=== PATIENT | female | born 1935 | race Caucasian/White ===

== ENCOUNTER → 2016-09-25 | Outpatient (CLI) | payer BC ==
[~2016-09-25] MED LIST: ASPI81TA28 PO; ATOR10TA82 PO; BNC/40 PO; C-PAP; GLIM4TAB2 PO; HYDR12.55 PO; LVNIS30 SQ; MAGN500T4 PO; METO50TA7 PO; MULT-506 PO; OXYC-57 PO; POTA20TA16 PO; SITA100T3 PO
[2016-09-25 12:36] LABS: HEMATOCRIT 45.8 % (37-47); MEAN CELL VOLUME 95.4 fL (80-100); MEAN CORPUSCULAR HEMOGLOBIN 32.7 pg (25-34); MEAN CORPUSCULAR HGB CONC 34.3 g/dl (32-36); MEAN PLATELET VOLUME 11.1 fL (7.4-10.4); PLATELET COUNT 159 K/uL (130-400); WHITE BLOOD COUNT 8.92 K/uL (4.8-10.8)
[2016-09-25 13:06] LABS: ESTIMATED AVERAGE GLUCOSE 154 mg/dl; HA1C FLAG Normal (Normal)
[2016-09-25 13:11] LABS: RATIO 4.8 mcg/mg (0-30.0)
[2016-09-25 13:30] LABS: ALT/SGPT 14 U/L (12-78); BLOOD UREA NITROGEN 13 mg/dl (7-18); BUN/CREATININE RATIO 15.1 (10-20); CARBON DIOXIDE 32 mmol/L (21-32); CHLORIDE 103 mmol/L (98-107); CHOLESTEROL 153 mg/dl (0-200); CREATININE 0.83 mg/dl (0.60-1.20); GLUCOSE 182 mg/dl (70-99); POTASSIUM 4.1 mmol/L (3.5-5.1); SODIUM 142 mmol/L (136-145)
[2016-09-25 13:41] LABS: ALB/GLOB RATIO 0.8 (0.9-2); ALKALINE PHOSPHATASE 62 U/L (45-117); AST/SGOT 14 U/L (15-37); CHOLESTEROL/HDL RATIO 2.9; HDL CHOLESTEROL 52 mg/dl; LDL CHOLESTEROL CALCULATED 76 mg/dl; TRIGLYCERIDES 127 mg/dl (0-150); VERY LOW DENSITY LIPOPROT CALC 25 mg/dl
[2016-09-25 13:52] LABS: CALCIUM 9.3 mg/dl (8.5-10.1)
== END | disposition home or self-care (01) ==
LOC: C.LABBFT 08:33
PROVIDERS: ATTEND Internal Medicine
DX: E11.9 Type 2 diabetes mellitus without complications (principal)

== ENCOUNTER → 2016-12-25 | Outpatient (CLI) | payer BC ==
[~2016-12-25] MED LIST changes: -ATOR10TA82 PO; +ATOR10TA88 PO
--- NOTE | 2016-12-25 15:37 | MAMMOGRAPHY REPORT ---
BILATERAL DIGITAL SCREENING MAMMOGRAM WITH CAD: 12/25/2016 CLINICAL HISTORY: Routine screening. Patient has no complaints. TECHNIQUE: Current study was also evaluated with a Computer Aided Detection (CAD) system. Bilateral CC and MLO views were obtained. COMPARISON: Comparison is made to exams dated: 12/22/2015 mammogram, 12/20/2014 mammogram, 08/10/2013 marlon mogram, 08/06/2012 mammogram, 07/29/2011 mammogram, and 07/26/2010 mammogram - [facility]. BREAST COMPOSITION: There are scattered areas of fibroglandular density in both breasts. FINDINGS: No suspicious masses, calcifications, or areas of architectural distortion are noted in ei ther breast. There has been no significant interval change compared to prior exams. Small bilateral benign-appearing masses and bilateral benign-appearing calcifications are not significantly changed. IMPRESSION: ACR BI-RADS CATEGORY 2: BENIGN There is no mammographic evidence of malignancy. A 1 year screening mammogram is recommended. The pa tient will receive written notification of the results. Approximately 10% of breast cancers are not detected with mammography. A negative mammographic report should not delay biopsy if a clinically suggestive mass is present. Aline Aranda M.D. /:12/25/2016 10:31:32 Rehabilitation Worker: Leanne JADE(Alex)(Pura), [facility] letter sent: Normal 1/2 BI-RADS Code: ACR BI-RADS Category 2: Benign
== END | disposition home or self-care (01) ==
LOC: C.MAMM 09:33
PROVIDERS: ATTEND Internal Medicine
DX: Z12.31 Encounter for screening mammogram for malignant neoplasm of breast (principal)

== ENCOUNTER 2021-12-24 10:28 | Inpatient (IN) ==
[2021-12-24] MEDS ORDERED: ALBUT/IPRATROP 3MG/0.5MG NEB 3 ML VIAL NEB STA ×2 (10:57→13:03)
[2021-12-24 11:25] LABS: Base Excess VBG 3.4 mEq/L; HCO3 VBG 30 mmol/L; Oxygen Saturation VBG 86.5 %; PCO2 VBG 50 mmHg (38-50); PO2 VBG 53 mmHg; pH VBG 7.38 (7.36-7.41)
--- NOTE | 2021-12-24 11:30 | XRay Report ---
XR chest 1V portable HISTORY: Shortness of breath. Productive cough. Atypical Chest Pain COMPARISON: Chest 08/2621. FINDINGS: No pneumothorax. Possible trace right pleural effusion. The cardiac silhouette remains enla rged. There is mild central pulmonary vascular congestion without overt edema. Hazy right base airspa ce opacity is new from the prior study. IMPRESSION: 1. Cardiomegaly with mild pulmonary vascular congestion. 2. Hazy right basilar airspace opacity which is new from the prior study and may represent a pneumoni a. This could be due to aspiration. ACT 112: Negative or not required by law. Electronically signed by: Bon Addison M.D. 12/24/2021 11:29 AM
[2021-12-24 11:50] LABS: Basophils # (auto) 0.07 K/uL (0-0.2); Eosinophils # (auto) 0.19 K/uL (0-0.50); Eosinophils % (auto) 2.8 %; Hematocrit (blood only) 47.3 % (34.1-44.9); Hemoglobin 16.1 g/dl (12.0-16.0); Immature Granulocytes # (auto) 0.05 K/uL (0.00-0.02); Immature Granulocytes % (auto) 0.7 %; Lymphocytes # (auto) 1.25 K/uL (1.2-3.4); Lymphocytes % (auto) 18.3 %; Mean Platelet Volume 10.8 fL (9.4-12.3); Monocytes # (auto) 0.57 K/uL (0.24-0.82); Monocytes % (auto) 8.3 %; Neutrophils # (auto) 4.71 K/uL (1.4-6.5); Neutrophils % (auto) 68.9 %; Nucleated RBC # (auto) 0.02 K/uL (0-0); Nucleated RBC % (auto) 0.3 %; Platelet Count 112 K/uL (130-400); Platelet Estimate Decreased (Normal); RDW Coefficient of Variation 13.1 % (11.5-14.5); RDW Standard Deviation 45.5 fL (36.4-46.3); Red Blood Count 5.03 M/uL (3.93-5.22); White Blood Count 6.84 K/ul (4.8-10.8)
[2021-12-24 12:16] LABS: Anion Gap 7 (3-11); BUN Creatinine Ratio 19.7 (10-20); Blood Urea Nitrogen 14 mg/dl (6-23); Calcium 8.8 mg/dl (8.5-10.1); Carbon Dioxide 27 mmol/L (21-32); Chloride 103 mmol/L (98-107); Creatinine Clr Calc Pharmacy 56.6 ml/min; Est GFR (African American) 89.4 ml/min; Est GFR (Non-African American) 77.1 ml/min; Glucose 297 mg/dl (70-99(Fasting)); Lipase 37 U/L (11-82); Sodium 137 mmol/L (136-145); Troponin I High Sensitivity 8.8 pg/ml (0-14)
--- NOTE | 2021-12-24 12:20 | CT Scan Report ---
CT head/brain wo con CLINICAL HISTORY: ams Technique: Contiguous axial CT images of the head were acquired from the base of the skull to the reva lloyd without intravenous contrast administration. Images were viewed in brain, [facility] Automated dose lowering techniques and/or adjustment according to patient size were utilized for this exam. Comparison: Comparison is made to CT head 12/05/2013 Findings: Exam is limited by patient motion. The ventricles, basal cisterns, and cerebral sulci are normal. The re is no acute intracranial hemorrhage or evidence of acute territorial infarction. Neither mass effe ct, shift of the midline structures, nor abnormal extra-axial fluid collections are shown. Imaged portions of the paranasal sinuses and mastoid air cells are clear. The orbits appear normal. Incidental note is made of a 26 mm sclerotic lesion in the right frontal calvarium which appears enl arged from prior exam. Impression: 1. No acute intracranial hemorrhage, no evidence of acute territorial infarction or other acute intr acranial disease process. 2. Interval enlargement of a sclerotic lesion in the left frontal calvarium. This may represent enla rging bone island, however correlation for osteoblastic disease is recommended. ACT 112: Positive. There are findings on this exam that require communication between the performing entity and the patient following Patient Test Result Information Act ([place] Act 112) guidelines. Electronically signed by: Genaro Hinson M.D. 12/24/2021 12:19 PM
[2021-12-24 12:40] LABS: Influenza A virus by PCR Negative (Neg); Influenza B virus by PCR Negative (Neg); RSV by PCR Positive (Neg)
[2021-12-24 12:45] LABS: SARS CoV2 RNA(COVID-19) InHosp NEGATIVE (Negative)
[2021-12-24] MEDS ORDERED: FUROSEMIDE 40 MG/4 ML VIAL IV ONE (12:59)
[2021-12-24 13:09] LABS: iSTAT Creatinine 0.6 mg/dl (0.6-1.3); iSTAT Ionized Calcium 1.11 mmol/l (1.12-1.32); iSTAT Potassium 3.4 mmol/L (3.3-5.0)
[2021-12-24 13:22] LABS: INR 1.1 (0.9-1.1); Partial Thromboplastin Ratio 1.1; Partial Thromboplastin Time 30.1 Seconds (21.0-31.0); Prothrombin Time 11.9 Seconds (9.0-12.0)
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
[2021-12-24] MEDS ORDERED: METOPROLOL SUCC 50MG EXT REL TAB PO STA (14:34)
--- NOTE | 2021-12-24 14:38 | Electrocardiogram Report ---
Test Reason : Blood Pressure : / mmHG Vent. Rate : 078 BPM Atrial Rate : 069 BPM P-R Int : 000 ms QRS Dur : 076 ms QT Int : 372 ms P-R-T Axes : 000 091 077 degrees QTc Int : 424 ms Atrial fibrillation Rightward axis Nonspecific ST and T wave abnormality Abnormal ECG When compared with ECG of 02-SEP-2021 17:33, Nonspecific T wave abnormality now evident in Inferior leads QT has shortened Confirmed by Tirso Cantrell ([id number]) on 12/24/2021 2:38:07 PM Referred By: REFERRED SELF Confirmed By:Nehemias Cantrell
[2021-12-24] MEDS ORDERED: GLIMEPIRIDE 2 MG TAB PO STA (14:39)
[2021-12-24] MEDS ORDERED: GLUCAGON FOR INJ 1 MG VIAL SQ PRN (16:12)
[2021-12-24] MEDS ORDERED: ONDANSETRON INJ 2 MG/ML 2 ML VIAL IV PRN (16:12)
[2021-12-24] MEDS ORDERED: DEXTROSE 50% 50 ML SYRINGE IV PRN (16:12)
[2021-12-24] MEDS ORDERED: ACETAMINOPHEN 325 MG TAB PO PRN (16:12)
[2021-12-24] MEDS ORDERED: GLUCOSE 10 TAB/TUBE PO PRN (16:12)
[2021-12-24] MEDS ORDERED: traMADol HCL 50 MG TABLET PO PRN (16:12)
[2021-12-24] MEDS ORDERED: GLUCOSE 40% GEL 15 GM TUBE PO PRN (16:12)
[2021-12-24] MEDS: INSULIN ASPART PER UNIT SC SCH ×2 (16:36→20:35)
[2021-12-24] MEDS: ALBUT/IPRATROP 3MG/0.5MG NEB 3 ML VIAL NEB SCH ×3 (16:37→22:46)
[2021-12-24] MEDS: LOSARTAN POTASSIUM 50 MG TAB PO SCH (17:34)
[2021-12-24] MEDS: APIXABAN 5 MG TABLET PO SCH (20:39)
[2021-12-25] MEDS: ALBUT/IPRATROP 3MG/0.5MG NEB 3 ML VIAL NEB SCH ×6 (02:57→23:06)
[2021-12-25 07:50] LABS: BUN Creatinine Ratio 23.7 (10-20); Calcium 8.8 mg/dl (8.5-10.1); Creatinine Clr Calc Pharmacy 67.4 ml/min; Est GFR (African American) 96.2 ml/min; Potassium 3.6 mmol/L (3.5-5.1)
[2021-12-25] MEDS: predniSONE 20 MG TAB PO SCH (08:15)
[2021-12-25] MEDS: CHOLECALCIFEROL 1,000 UNITS 25 MCG TAB PO SCH (08:15)
[2021-12-25] MEDS: APIXABAN 5 MG TABLET PO SCH ×2 (08:15→21:10)
[2021-12-25] MEDS: ATORVASTATIN 10 MG TAB PO SCH (08:15)
[2021-12-25] MEDS: FUROSEMIDE INJ 20 MG/2 ML VIAL IV SCH (08:16)
[2021-12-25] MEDS: METOPROLOL SUCC 50MG EXT REL TAB PO SCH (08:17)
[2021-12-25] MEDS: GLIMEPIRIDE 2 MG TAB PO SCH ×2 (08:17→21:10)
[2021-12-25] MEDS: LOSARTAN POTASSIUM 50 MG TAB PO SCH (08:18)
[2021-12-25 08:26] LABS: Basophils # (auto) 0.03 K/uL (0-0.2); Basophils % (auto) 0.5 %; Hematocrit (blood only) 45.7 % (34.1-44.9); Hemoglobin 15.2 g/dl (12.0-16.0); Immature Granulocytes # (auto) 0.02 K/uL (0.00-0.02); Immature Granulocytes % (auto) 0.3 %; Lymphocytes # (auto) 1.67 K/uL (1.2-3.4); Lymphocytes % (auto) 25.4 %; Mean Corpuscular Hemoglobin 31.5 pg (25.0-34.0); Mean Corpuscular Hgb Conc 33.3 g/dL (32.0-36.0); Mean Corpuscular Volume 94.8 fL (80.0-100.0); Mean Platelet Volume 10.4 fL (9.4-12.3); Monocytes # (auto) 0.79 K/uL (0.24-0.82); Neutrophils # (auto) 4.06 K/uL (1.4-6.5); Neutrophils % (auto) 61.8 %; Platelet Count 113 K/uL (130-400); Platelet Estimate Decreased (Normal); RDW Coefficient of Variation 13.2 % (11.5-14.5); RDW Standard Deviation 45.7 fL (36.4-46.3); Red Blood Count 4.82 M/uL (3.93-5.22); White Blood Count 6.57 K/ul (4.8-10.8)
[2021-12-25 08:31] LABS: Estimated Average Glucose 128 mg/dl; Hemoglobin A1C 6.1 % (4.5-5.6)
[2021-12-25] MEDS: INSULIN ASPART PER UNIT SC SCH ×4 (08:34→21:04)
--- NOTE | 2021-12-25 18:52 | Hospitalist Progress Note ---
Date of Service December 25, 2021 Assessment & Plan (1) RSV (respiratory syncytial virus pneumonia): Plan: 86 yo female with extensive PMHx who presented to ER with shortness of breath, diarrhea, cough and nausea starting four days ago. Acute hypoxic resp failure sec to Reactive airway disease due to RSV and possible fluid overload -NC oxygen Reactive airway ds -No history of asthma or COPD but usually needs albuterol when she gets sick and significant improvement with nebulizers in the emergency room. -Solu-Medrol 40mg IV x1, then prednisone 40mg PO daily for 3-5 day course likely needed -Duonebs q4hwa + q2h PRN -supplement O2 as needed, ween as able -Recommend outpatient follow up with PCP for PFTs RSV (respiratory syncytial virus pneumonia) -Droplet isolation precautions -Conservative management as above 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 fraction -Suspect minimally contributory towards acute respiratory failure with hypoxia given significant improvement after duonebs suspect her hypoxia mostly related to reactive airway disease as above -still appears to be hypervolemic on CXR and exam -Lasix 40mg IV given in ER, continue 20mg IV daily (usual dose is 20mg PO daily) -Low Na, heart healthy diet Moderate aortic stenosis -Moderate to severe on recent echocardiogram in November. 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 This may represent enlarging bone island, however correlation for osteoblastic disease is recommended. -Consider bone scan as outpatient Persistent atrial fibrillation -Continue Eliquis for anticoagulation -cont. metoprolol 50mg PO daily Type 2 diabetes mellitus -HbA1C 6.4 in July, repeat 6.1 (12/24) -Hold glimepiride and Trulicity once weekly (next dose on Friday) -on SSI Hypertension -Continue losartan, metoprolol and Lasix (dosing as above) Hypercholesteremia -Continue atorvastatin 5mg PO daily SADIQ (obstructive sleep apnea) -CPAP HS DVT ppx: Eliquis FEN/GI: low Na, HH, no need for fluid restriction Code Status: conditional code, DNR only Dispo: PCU/tele (2) Reactive airway disease: (3) 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 fraction: (4) Moderate aortic stenosis: (5) Abnormal head CT: (6) Persistent atrial fibrillation: (7) Type 2 diabetes mellitus: (8) Hypertension: (9) Hypercholesteremia: (10) SADIQ (obstructive sleep apnea): Admission and Anticipated Discharge Date Admission Date: December 24, 2021 Supervising Physician Co-Signing Physician Notes Resident Physician Supervision Note: I independently interviewed and examined the patient and verified the tellez history and physical, reviewed labs and image studies and agree with resident Dr. Ghotra findings and care plan. Subjective Patient seen at bedside this morning. Feeling better than before. Breathing better, still on supplemental oxygen. Denies chest pain, SOB, PENA, N/V. Review of Systems Review of Systems: All systems reviewed & are unremarkable except as noted in HPI & below Physical Exam Physical Exam: Constitutional: in no acute distress, pleasant, intact memory. Vitals as above. NC in place. HEENT: No scleral injection or discharge.Moist mucous membranes. Neck: Supple without lymphadenopathy. Trachea midline. Lungs: Diffuse expiratory wheezes with crackles, no accessory muscle use Cardiac: RRR. No murmurs.1+ pretibial edema bilaterally. Abdomen: +BS. Soft, nontender, and nondistended.No guarding. MSK: No cyanosis or clubbing. Skin: No rashes, warm, dry. Neurologic: Grossly intact cranial nerves Psych: AOx3 Results & Data Results & Data ([facility]) Vital Signs (Past 12 Hours) Vital Signs Temp Pulse Pulse Resp BP Pulse Ox 12/25/21 16:18 36.8 C 93 H 18 128/84 90 12/25/21 15:11 73 18 95 12/25/21 15:00 83 12/25/21 12:01 38 C H 87 18 138/81 92 12/25/21 10:42 92 H 18 94 12/25/21 07:30 36.8 C 102 H 16 122/62 94 12/25/21 07:15 76 20 95 Laboratory Results 12/25/21 12/25/21 12/25/21 Range/Units 16:30 11:15 07:26 WBC (4.8-10.8) K/ul RBC (3.93-5.22) M/uL Hgb (12.0-16.0) g/dl Hct (34.1-44.9) % MCV (80.0-100.0) fL MCH (25.0-34.0) pg MCHC (32.0-36.0) g/dL RDW Std Deviation (36.4-46.3) fL RDW Coeff of Umair (11.5-14.5) % Plt Count (130-400) K/uL MPV (9.4-12.3) fL Immature Gran % (Auto) % Neut % (Auto) % Lymph % (Auto) % [place] % (Auto) % Eos % (Auto) % Baso % (Auto) % Neut # (Auto) (1.4-6.5) K/uL Lymph # (Auto) (1.2-3.4) K/uL [place] # (Auto) (0.24-0.82) K/uL Eos # (Auto) (0-0.50) K/uL Baso # (Auto) (0-0.2) K/uL Immature Gran # (Auto) (0.00-0.02) K/uL Platelet Estimate (Normal) Sodium (136-145) mmol/L Potassium (3.5-5.1) mmol/L Chloride (98-107) mmol/L Carbon Dioxide (21-32) mmol/L Anion Gap (3-11) BUN (6-23) mg/dl Creatinine (0.6-1.2) mg/dl Est Cr Clr Drug Dosing ml/min Est GFR ( Amer) ml/min Est GFR (Non-Af Amer) ml/min BUN/Creatinine Ratio (10-20) Glucose (70-99(Fasting)) mg/dl POC Glucose 190 H 146 H 73 (70-99) mg/dl Estimat Average Glucose mg/dl Hemoglobin A1c (4.5-5.6) % Calcium (8.5-10.1) mg/dl 12/25/21 12/25/21 12/25/21 Range/Units 07:07 07:07 07:07 WBC 6.57 (4.8-10.8) K/ul RBC 4.82 (3.93-5.22) M/uL Hgb 15.2 (12.0-16.0) g/dl Hct 45.7 H (34.1-44.9) % MCV 94.8 (80.0-100.0) fL MCH 31.5 (25.0-34.0) pg MCHC 33.3 (32.0-36.0) g/dL RDW Std Deviation 45.7 (36.4-46.3) fL RDW Coeff of Umair 13.2 (11.5-14.5) % Plt Count 113 L (130-400) K/uL MPV 10.4 (9.4-12.3) fL Immature Gran % (Auto) 0.3 % Neut % (Auto) 61.8 % Lymph % (Auto) 25.4 % [place] % (Auto) 12.0 % Eos % (Auto) 0.0 % Baso % (Auto) 0.5 % Neut # (Auto) 4.06 (1.4-6.5) K/uL Lymph # (Auto) 1.67 (1.2-3.4) K/uL [place] # (Auto) 0.79 (0.24-0.82) K/uL Eos # (Auto) 0.00 (0-0.50) K/uL Baso # (Auto) 0.03 (0-0.2) K/uL Immature Gran # (Auto) 0.02 (0.00-0.02) K/uL Platelet Estimate Decreased L (Normal) Sodium 142 (136-145) mmol/L Potassium 3.6 (3.5-5.1) mmol/L Chloride 104 (98-107) mmol/L Carbon Dioxide 34 H (21-32) mmol/L Anion Gap 4 (3-11) BUN 14 (6-23) mg/dl Creatinine 0.59 L (0.6-1.2) mg/dl Est Cr Clr Drug Dosing 67.4 ml/min Est GFR ( Amer) 96.2 ml/min Est GFR (Non-Af Amer) 83.0 ml/min BUN/Creatinine Ratio 23.7 H (10-20) Glucose 76 (70-99(Fasting)) mg/dl POC Glucose (70-99) mg/dl Estimat Average Glucose 128 mg/dl Hemoglobin A1c 6.1 H (4.5-5.6) % Calcium 8.8 (8.5-10.1) mg/dl 12/24/21 Range/Units 20:02 WBC (4.8-10.8) K/ul RBC (3.93-5.22) M/uL Hgb (12.0-16.0) g/dl Hct (34.1-44.9) % MCV (80.0-100.0) fL MCH (25.0-34.0) pg MCHC (32.0-36.0) g/dL RDW Std Deviation (36.4-46.3) fL RDW Coeff of Umair (11.5-14.5) % Plt Count (130-400) K/uL MPV (9.4-12.3) fL Immature Gran % (Auto) % Neut % (Auto) % Lymph % (Auto) % [place] % (Auto) % Eos % (Auto) % Baso % (Auto) % Neut # (Auto) (1.4-6.5) K/uL Lymph # (Auto) (1.2-3.4) K/uL [place] # (Auto) (0.24-0.82) K/uL Eos # (Auto) (0-0.50) K/uL Baso # (Auto) (0-0.2) K/uL Immature Gran # (Auto) (0.00-0.02) K/uL Platelet Estimate (Normal) Sodium (136-145) mmol/L Potassium (3.5-5.1) mmol/L Chloride (98-107) mmol/L Carbon Dioxide (21-32) mmol/L Anion Gap (3-11) BUN (6-23) mg/dl Creatinine (0.6-1.2) mg/dl Est Cr Clr Drug Dosing ml/min Est GFR ( Amer) ml/min Est GFR (Non-Af Amer) ml/min BUN/Creatinine Ratio (10-20) Glucose (70-99(Fasting)) mg/dl POC Glucose 183 H (70-99) mg/dl Estimat Average Glucose mg/dl Hemoglobin A1c (4.5-5.6) % Calcium (8.5-10.1) mg/dl Resident Activity Tracking Resident Involvement: Resident Care Provided Care Provided: Adult [facility] Medicine
[2021-12-26] MEDS: ALBUT/IPRATROP 3MG/0.5MG NEB 3 ML VIAL NEB SCH ×4 (04:06→15:04)
[2021-12-26 06:59] LABS: Albumin Globulin Ratio 1.2 (0.9-2); Albumin Level 3.4 gm/dl (3.4-5.0); BUN Creatinine Ratio 29.9 (10-20); Bilirubin,Total 0.7 mg/dl (0.2-1.0); Calcium 8.9 mg/dl (8.5-10.1); Creatinine Clr Calc Pharmacy 51.6 ml/min; Est GFR (Non-African American) 69.9 ml/min; Globulin 2.8 gm/dl (2.5-4.0); Potassium 3.8 mmol/L (3.5-5.1); Total Protein 6.2 gm/dl (6.0-8.3)
[2021-12-26] MEDS: CARBOHYDRATES FOR HYPOGLYCEMIA PO PRN ×3 (07:12→07:57)
[2021-12-26 07:25] LABS: Basophils # (auto) 0.03 K/uL (0-0.2); Basophils % (auto) 0.4 %; Eosinophils # (auto) 0.05 K/uL (0-0.50); Eosinophils % (auto) 0.6 %; Hematocrit (blood only) 49.9 % (34.1-44.9); Hemoglobin 16.2 g/dl (12.0-16.0); Immature Granulocytes # (auto) 0.02 K/uL (0.00-0.02); Immature Granulocytes % (auto) 0.2 %; Lymphocytes % (auto) 28.4 %; Mean Corpuscular Hemoglobin 32.1 pg (25.0-34.0); Mean Corpuscular Hgb Conc 32.5 g/dL (32.0-36.0); Mean Platelet Volume 12.4 fL (9.4-12.3); Monocytes % (auto) 9.9 %; Neutrophils # (auto) 4.91 K/uL (1.4-6.5); Neutrophils % (auto) 60.5 %; Platelet Count 123 K/uL (130-400); RDW Coefficient of Variation 13.4 % (11.5-14.5); RDW Standard Deviation 48.4 fL (36.4-46.3); Red Blood Count 5.04 M/uL (3.93-5.22); White Blood Count 8.11 K/ul (4.8-10.8)
[2021-12-26] MEDS ORDERED: GLIMEPIRIDE 2 MG TAB PO SCH (08:00)
[2021-12-26] MEDS: INSULIN ASPART PER UNIT SC SCH ×4 (08:15→20:42)
[2021-12-26] MEDS: APIXABAN 5 MG TABLET PO SCH ×2 (09:16→20:34)
[2021-12-26] MEDS: ATORVASTATIN 10 MG TAB PO SCH (09:16)
[2021-12-26] MEDS: predniSONE 20 MG TAB PO SCH (09:17)
[2021-12-26] MEDS: FUROSEMIDE INJ 20 MG/2 ML VIAL IV SCH (09:17)
[2021-12-26] MEDS: METOPROLOL SUCC 50MG EXT REL TAB PO SCH (09:17)
[2021-12-26] MEDS: LOSARTAN POTASSIUM 50 MG TAB PO SCH (09:17)
[2021-12-26] MEDS: CHOLECALCIFEROL 1,000 UNITS 25 MCG TAB PO SCH (09:17)
[2021-12-26] MEDS ORDERED: SODIUM CHLORIDE 0.65% NA SOLN 45 ML (OCEAN) ONE (15:32)
[2021-12-26] MEDS ORDERED: ALBUT/IPRATROP 3MG/0.5MG NEB 3 ML VIAL NEB PRN (15:37)
--- NOTE | 2021-12-26 20:03 | Hospitalist Progress Note ---
Date of Service December 26, 2021 Assessment & Plan (1) RSV (respiratory syncytial virus pneumonia): Plan: 86 yo female with extensive PMHx who presented to ER with shortness of breath, diarrhea, cough and nausea starting four days ago. Acute hypoxic resp failure sec to Reactive airway disease due to RSV and possible fluid overload -No history of asthma or COPD but usually needs albuterol when she gets sick and significant improvement with nebulizers in the emergency room. -Solu-Medrol 40mg IV x1, then prednisone 40mg PO daily for 3-5 day course likely needed -Duonebs qh4 prn -supplement O2 as needed, ween as able -Recommend outpatient follow up with PCP for PFTs -Droplet isolation precautions 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 fraction -Suspect minimally contributory towards acute respiratory failure with hypoxia given significant improvement after duonebs suspect her hypoxia mostly related to reactive airway disease as above -appears euvolemic on exam -Lasix 40mg IV given in ER, continue 20mg IV daily (usual dose is 20mg PO daily) -Low Na, heart healthy diet Type 2 diabetes mellitus -HbA1C 6.4 in July, repeat 6.1 (12/24) -Hold glimepiride and Trulicity once weekly (next dose on Friday) -on SSI -was given two doses of glimepiride on 12/25 with a asymptomatic hypoglycemic episode the following morning, suspect she has these at home without realizat ion, would consider discontinuation of glimepiride on discharge or at least a decrease in dose if patient agrees; f/u PCP Moderate aortic stenosis -Moderate to severe on recent echocardiogram in November. Followed up with sample prep technician following this but deferring TAVR Abnormal head CT -Interval enlargement of a sclerotic lesion in the left frontal calvarium. This may represent enlarging bone island, however correlation for osteoblastic disease is recommended. -Consider bone scan as outpatient Persistent atrial fibrillation -Continue Eliquis for anticoagulation -cont. metoprolol 50mg PO daily Hypertension -Continue losartan, metoprolol and Lasix (dosing as above) Hypercholesteremia -Continue atorvastatin 5mg PO daily SADIQ (obstructive sleep apnea) -CPAP HS DVT ppx: Eliquis FEN/GI: low Na, HH Code Status: conditional code, DNR only Dispo: PCU/tele (2) Reactive airway disease: (3) 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 fraction: (4) Moderate aortic stenosis: (5) Abnormal head CT: (6) Persistent atrial fibrillation: (7) Type 2 diabetes mellitus: (8) Hypertension: (9) Hypercholesteremia: (10) SADIQ (obstructive sleep apnea): Admission and Anticipated Discharge Date Admission Date: December 24, 2021 Supervising Physician Co-Signing Physician Notes Patient seen and examined with PGY-2 Dr. Ghotra. Agree with history, exam findings, assessment and plan of care as outlined. In brief, Ms Garrett is an 86 year old female with history of reactive airway, HFpEF, aortic stenosis, atrial fibrillation, DM2, HTN, HLD, and SADIQ admitted with wheezing. This morning, feels well despite some nasal congestion. She did have an episodes of hypoglycemia this morning--she was asymptomatic. She has never had symptoms of hypoglycemia at home. Does note that her appetite is less here compared to her baseline. She has tried other glycemic management medications, but glimepiride has been the only thing she tried that she did not react to. her A1C was 6.1% on admission. At home, is on 4mg glimepiride BID. VS and nursing notes reviewed. Well appearing, Heart is irregular. No edema. Wheezing and coarse breath sounds throughout. No crackles. Labs reviewed. 1. Reactive airway. No hx of asthma or COPD, but typically needs beta agonist when she has a respiratory infection. Improved with nebs in the ED. Continue prednisone, duonebs PRN. Currently on 2 L NC--attempted to wean earlier in the day, but desaturated. Will attempt to wean again tomorrow. Needs PFTs as an outpatient. 2. RSV infection. Droplet precautions. Supportive care. 3. HFpEF. Not in exacerbation, currently euvolemic. Continue home Lasix 20mg. 4. Atrial fibrillation. Continue home metoprolol. AC with Eliquis. 5. DM2. Continue home Trulicity (), ssi. Stopped home glimepiride. Discussed with patient possibility of reducing dose or stopping the sulfonylurea in the future to avoid continued hypoglycemia. Can consider a more liberal A1C given her age. 6. HTN. Continue home losartan, metoprolol, Lasix. 7. HLD. Continue atorvastatin 5mg daily. Dispo: pending clinical improvement Subjective Patient seen at bedside this morning. Feeling well, similar to yesterday. Still on supplemental oxygen. Does ambulate in room on O2 without complaint. Denies chest pain, SOB, PENA, N/V. Of note, this morning did have an asymptomatic hypoglycemic reading in the 50s, resolved with OJ and food. Review of Systems Review of Systems: All systems reviewed & are unremarkable except as noted in HPI & below Physical Exam Physical Exam: Constitutional: AOx3, in no acute distress, pleasant, intact memory. Vitals as above. NC in place. HEENT: No scleral injection or discharge.Moist mucous membranes. Neck: Supple without lymphadenopathy. Trachea midline. Lungs: Diffuse expiratory wheezes with mild crackles, no accessory muscle use Cardiac: RRR. No murmurs.Trace pretibial edema bilaterally. Abdomen: +BS. Soft, nontender, and nondistended.No guarding. MSK: No cyanosis or clubbing. Skin: warm, dry Results & Data Results & Data ([facility]) Vital Signs (Past 12 Hours) Vital Signs Temp Pulse Pulse Resp BP Pulse Ox Pulse Ox 12/26/21 19:25 36.7 C 110 H 20 120/66 90 12/26/21 16:00 92 12/26/21 16:26 36.4 C L 64 22 129/87 91 12/26/21 15:04 104 H 18 93 12/26/21 12:52 92 12/26/21 12:52 89 L 12/26/21 11:48 36.7 C 100 H 18 117/87 94 12/26/21 11:13 93 H 18 93 12/26/21 08:00 O2 Del Method O2 Del Method O2 Flow Rate O2 Flow Rate 12/26/21 19:25 Nasal Cannula 2 12/26/21 16:00 Nasal Cannula 2 12/26/21 16:26 Nasal Cannula 2 12/26/21 15:04 Nasal Cannula 2 12/26/21 12:52 Nasal Cannula 2 12/26/21 12:52 Room Air 12/26/21 11:48 Nasal Cannula 2 12/26/21 11:13 Nasal Cannula 2 12/26/21 08:00 Nasal Cannula 2 Laboratory Results 12/26/21 12/26/21 12/26/21 Range/Units 16:09 11:24 07:59 WBC (4.8-10.8) K/ul RBC (3.93-5.22) M/uL Hgb (12.0-16.0) g/dl Hct (34.1-44.9) % MCV (80.0-100.0) fL MCH (25.0-34.0) pg MCHC (32.0-36.0) g/dL RDW Std Deviation (36.4-46.3) fL RDW Coeff of Umair (11.5-14.5) % Plt Count (130-400) K/uL MPV (9.4-12.3) fL Immature Gran % (Auto) % Neut % (Auto) % Lymph % (Auto) % [place] % (Auto) % Eos % (Auto) % Baso % (Auto) % Neut # (Auto) (1.4-6.5) K/uL Lymph # (Auto) (1.2-3.4) K/uL Radford # (Auto) (0.24-0.82) K/uL Eos # (Auto) (0-0.50) K/uL Baso # (Auto) (0-0.2) K/uL Immature Gran # (Auto) (0.00-0.02) K/uL Sodium (136-145) mmol/L Potassium (3.5-5.1) mmol/L Chloride (98-107) mmol/L Carbon Dioxide (21-32) mmol/L Anion Gap (3-11) BUN (6-23) mg/dl Creatinine (0.6-1.2) mg/dl Est Cr Clr Drug Dosing ml/min Est GFR ( Amer) ml/min Est GFR (Non-Af Amer) ml/min BUN/Creatinine Ratio (10-20) Glucose (70-99(Fasting)) mg/dl POC Glucose 244 H 153 H 77 (70-99) mg/dl Calcium (8.5-10.1) mg/dl Total Bilirubin (0.2-1.0) mg/dl AST (13-39) U/L ALT (7-52) U/L Alkaline Phosphatase (34-104) U/L Total Protein (6.0-8.3) gm/dl Albumin (3.4-5.0) gm/dl Globulin (2.5-4.0) gm/dl Albumin/Globulin Ratio (0.9-2) 12/26/21 12/26/21 12/26/21 Range/Units 07:43 07:42 07:30 WBC (4.8-10.8) K/ul RBC (3.93-5.22) M/uL Hgb (12.0-16.0) g/dl Hct (34.1-44.9) % MCV (80.0-100.0) fL MCH (25.0-34.0) pg MCHC (32.0-36.0) g/dL RDW Std Deviation (36.4-46.3) fL RDW Coeff of Umair (11.5-14.5) % Plt Count (130-400) K/uL MPV (9.4-12.3) fL Immature Gran % (Auto) % Neut % (Auto) % Lymph % (Auto) % Rad[place] % (Auto) % Eos % (Auto) % Baso % (Auto) % Neut # (Auto) (1.4-6.5) K/uL Lymph # (Auto) (1.2-3.4) K/uL Radford # (Auto) (0.24-0.82) K/uL Eos # (Auto) (0-0.50) K/uL Baso # (Auto) (0-0.2) K/uL Immature Gran # (Auto) (0.00-0.02) K/uL Sodium (136-145) mmol/L Potassium (3.5-5.1) mmol/L Chloride (98-107) mmol/L Carbon Dioxide (21-32) mmol/L Anion Gap (3-11) BUN (6-23) mg/dl Creatinine (0.6-1.2) mg/dl Est Cr Clr Drug Dosing ml/min Est GFR ( Amer) ml/min Est GFR (Non-Af Amer) ml/min BUN/Creatinine Ratio (10-20) Glucose (70-99(Fasting)) mg/dl POC Glucose 59 L* 56 L* 56 L* (70-99) mg/dl Calcium (8.5-10.1) mg/dl Total Bilirubin (0.2-1.0) mg/dl AST (13-39) U/L ALT (7-52) U/L Alkaline Phosphatase (34-104) U/L Total Protein (6.0-8.3) gm/dl Albumin (3.4-5.0) gm/dl Globulin (2.5-4.0) gm/dl Albumin/Globulin Ratio (0.9-2) 12/26/21 12/26/21 12/26/21 Range/Units 07:29 07:12 07:11 WBC (4.8-10.8) K/ul RBC (3.93-5.22) M/uL Hgb (12.0-16.0) g/dl Hct (34.1-44.9) % MCV (80.0-100.0) fL MCH (25.0-34.0) pg MCHC (32.0-36.0) g/dL RDW Std Deviation (36.4-46.3) fL RDW Coeff of Umair (11.5-14.5) % Plt Count (130-400) K/uL MPV (9.4-12.3) fL Immature Gran % (Auto) % Neut % (Auto) % Lymph % (Auto) % Rad[place] % (Auto) % Eos % (Auto) % Baso % (Auto) % Neut # (Auto) (1.4-6.5) K/uL Lymph # (Auto) (1.2-3.4) K/uL Radford # (Auto) (0.24-0.82) K/uL Eos # (Auto) (0-0.50) K/uL Baso # (Auto) (0-0.2) K/uL Immature Gran # (Auto) (0.00-0.02) K/uL Sodium (136-145) mmol/L Potassium (3.5-5.1) mmol/L Chloride (98-107) mmol/L Carbon Dioxide (21-32) mmol/L Anion Gap (3-11) BUN (6-23) mg/dl Creatinine (0.6-1.2) mg/dl Est Cr Clr Drug Dosing ml/min Est GFR ( Amer) ml/min Est GFR (Non-Af Amer) ml/min BUN/Creatinine Ratio (10-20) Glucose (70-99(Fasting)) mg/dl POC Glucose 62 L* 64 L* 58 L* (70-99) mg/dl Calcium (8.5-10.1) mg/dl Total Bilirubin (0.2-1.0) mg/dl AST (13-39) U/L ALT (7-52) U/L Alkaline Phosphatase (34-104) U/L Total Protein (6.0-8.3) gm/dl Albumin (3.4-5.0) gm/dl Globulin (2.5-4.0) gm/dl Albumin/Globulin Ratio (0.9-2) 12/26/21 12/26/21 12/25/21 Range/Units 06:06 06:06 20:13 WBC 8.11 (4.8-10.8) K/ul RBC 5.04 (3.93-5.22) M/uL Hgb 16.2 H (12.0-16.0) g/dl Hct 49.9 H (34.1-44.9) % MCV 99.0 (80.0-100.0) fL MCH 32.1 (25.0-34.0) pg MCHC 32.5 (32.0-36.0) g/dL RDW Std Deviation 48.4 H (36.4-46.3) fL RDW Coeff of Umair 13.4 (11.5-14.5) % Plt Count 123 L (130-400) K/uL MPV 12.4 H (9.4-12.3) fL Immature Gran % (Auto) 0.2 % Neut % (Auto) 60.5 % Lymph % (Auto) 28.4 % Radford % (Auto) 9.9 % Eos % (Auto) 0.6 % Baso % (Auto) 0.4 % Neut # (Auto) 4.91 (1.4-6.5) K/uL Lymph # (Auto) 2.30 (1.2-3.4) K/uL Radford # (Auto) 0.80 (0.24-0.82) K/uL Eos # (Auto) 0.05 (0-0.50) K/uL Baso # (Auto) 0.03 (0-0.2) K/uL Immature Gran # (Auto) 0.02 (0.00-0.02) K/uL Sodium 142 (136-145) mmol/L Potassium 3.8 (3.5-5.1) mmol/L Chloride 103 (98-107) mmol/L Carbon Dioxide 36 H (21-32) mmol/L Anion Gap 3 (3-11) BUN 23 (6-23) mg/dl Creatinine 0.77 (0.6-1.2) mg/dl Est Cr Clr Drug Dosing 51.6 ml/min Est GFR ( Amer) 81.0 ml/min Est GFR (Non-Af Amer) 69.9 ml/min BUN/Creatinine Ratio 29.9 H (10-20) Glucose 65 L (70-99(Fasting)) mg/dl POC Glucose 161 H (70-99) mg/dl Calcium 8.9 (8.5-10.1) mg/dl Total Bilirubin 0.7 (0.2-1.0) mg/dl AST 16 (13-39) U/L ALT 5 L (7-52) U/L Alkaline Phosphatase 56 (34-104) U/L Total Protein 6.2 (6.0-8.3) gm/dl Albumin 3.4 (3.4-5.0) gm/dl Globulin 2.8 (2.5-4.0) gm/dl Albumin/Globulin Ratio 1.2 (0.9-2) Resident Activity Tracking Resident Involvement: Resident Care Provided Care Provided: Adult Hospital Medicine
--- NOTE | 2021-12-27 07:50 | Hospitalist Progress Note ---
Date of Service December 27, 2021 Assessment & Plan (1) RSV (respiratory syncytial virus pneumonia): Plan: 86 yo female with extensive PMHx who presented to ER with shortness of breath, diarrhea, cough and nausea starting four days ago. Acute hypoxic respiratory failure sec to Reactive airway disease due to RSV and possible fluid overload -No history of asthma or COPD but usually needs albuterol when she gets sick and significant improvement with nebulizers in the emergency room. - +RSV on admission -Solu-Medrol 40mg IV x1, then prednisone 40mg PO daily for 3-5 days -Duonebs qh4 prn -supplement O2 as needed, ween as able; will need 2-step prior to discharge -Recommend outpatient follow up with PCP for PFTs -Droplet isolation precautions -PT/OT ordered 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 fraction -Suspect minimally contributory towards acute respiratory failure with hypoxia given significant improvement after duonebs suspect her hypoxia mostly related to reactive airway disease as above -appears euvolemic on exam -Lasix 40mg IV given in ER, continue 20mg IV daily (usual home dose is 20mg PO daily) -Low Na, heart healthy diet Type 2 diabetes mellitus -HbA1C 6.4 in July, repeat 6.1 (12/24) -Hold glimepiride and Trulicity (once weekly - next dose on Friday) -on SSI -was given two doses of glimepiride on 12/25 with a asymptomatic hypoglycemic episode the following morning, suspect she has these at home without realization, would consider discontinuation of glimepiride on discharge or at least a decrease in dose if patient agrees; f/u PCP Moderate aortic stenosis -Moderate to severe on recent echocardiogram in November. Followed up with beauty operator apprentice following this but deferring TAVR Abnormal head CT -Interval enlargement of a sclerotic lesion in the left frontal calvarium. This may represent enlarging bone island, however correlation for osteoblastic disease is recommended. -Consider bone scan as outpatient Persistent atrial fibrillation -Continue Eliquis for anticoagulation -cont. metoprolol 50mg PO daily Hypertension -Continue losartan, metoprolol and Lasix (dosing as above) Hypercholesteremia -Continue atorvastatin 5mg PO daily SADIQ (obstructive sleep apnea) -CPAP HS DVT ppx: Eliquis FEN/GI: low Na, HH Code Status: conditional code, DNR only Dispo: PCU/tele (2) Reactive airway disease: (3) 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 fraction: (4) Moderate aortic stenosis: (5) Abnormal head CT: (6) Persistent atrial fibrillation: (7) Type 2 diabetes mellitus: (8) Hypertension: (9) Hypercholesteremia: (10) SADIQ (obstructive sleep apnea): Admission and Anticipated Discharge Date Admission Date: December 24, 2021 Supervising Physician Co-Signing Physician Notes Patient seen and examined independently of PGY-2 Dr. Ghotra. Agree with history, exam findings, assessment and plan of care as outlined. In brief, Ms Garrett is an 86 year old female with history of reactive airway, HFpEF, aortic stenosis, atrial fibrillation, DM2, HTN, HLD, and SADIQ admitted with wheezing. She feels well today. Feels that breathing has continued to improve. She has been able to lie flat to sleep (although is more comfortable with the head of the bed closer to the door). No cough. Has walked within the room and has not noticed any increasing dyspnea with exertion. VS and nursing notes reviewed. Well appearing, Heart is irregular. No edema. Wheezing and coarse breath sounds throughout. No crackles. Labs reviewed. 1. Reactive airway. No hx of asthma or COPD, but typically needs beta agonist when she has a respiratory infection. Improved with nebs in the ED. Continue prednisone burst, duonebs PRN. Currently on 2 L NC--attempted to wean earlier in the day, but desaturated. Will attempt to wean again tomorrow. Needs PFTs as an outpatient. 2. RSV infection. Droplet precautions. Supportive care. 3. HFpEF. Appears euvolemic on exam. Check CXR in the AM to better eval for pulm edema in addition to AM BNP to help decide whether or not to increase Lasix dose. In the meantime, continue home Lasix 20mg. 4. Atrial fibrillation. Continue home metoprolol. AC with Eliquis. 5. DM2. Continue home Trulicity (), ssi. Stopped home glimepiride. Discussed with patient possibility of reducing dose or stopping the sulfonylurea in the future to avoid continued hypoglycemia. Can consider a more liberal A1C given her age. 6. HTN. Continue home losartan, metoprolol, Lasix. 7. HLD. Continue atorvastatin 5mg daily. Dispo: pending clinical improvement. Subjective Patient seen at bedside this morning. No overnight events including hypoglycemic events. No acute complaints. Feels even more improved from yesterday. Has been moving around room. Still on 2L NC. Denies chest pain, abdominal pain, PENA, N/V. Review of Systems Review of Systems: All systems reviewed & are unremarkable except as noted in HPI & below Physical Exam Physical Exam: Constitutional: AOx3, in no acute distress, pleasant. Vitals as above. NC in place. HEENT: No scleral injection or discharge.Moist mucous membranes. Neck: Supple without lymphadenopathy. Trachea midline. Lungs: Improving mild diffuse expiratory wheezes, no rales/rhonchi, no accessory muscle use Cardiac: RRR. No murmurs.Trace pretibial edema bilaterally. Abdomen: +BS. Soft, nontender, and nondistended.No guarding. MSK: No cyanosis or clubbing. Skin: warm, dry Results & Data Results & Data ([facility]) Vital Signs (Past 12 Hours) Vital Signs Temp Pulse Pulse Resp BP BP Pulse Ox 12/27/21 03:27 36.7 C 101 H 19 145/89 H 97 12/27/21 00:00 120 H 12/26/21 22:54 36.7 C 110 H 20 104/69 93 12/26/21 20:35 O2 Del Method O2 Flow Rate 12/27/21 03:27 Nasal Cannula 2 12/27/21 00:00 12/26/21 22:54 Nasal Cannula 2 12/26/21 20:35 Nasal Cannula 2 Laboratory Results 12/27/21 12/27/21 12/27/21 Range/Units 11:11 07:37 07:13 Sodium 142 (136-145) mmol/L Potassium 4.0 (3.5-5.1) mmol/L Chloride 103 (98-107) mmol/L Carbon Dioxide 37 H (21-32) mmol/L Anion Gap 2 L (3-11) BUN 23 (6-23) mg/dl Creatinine 0.66 (0.6-1.2) mg/dl Est Cr Clr Drug Dosing 60.2 ml/min Est GFR ( Amer) 92.7 ml/min Est GFR (Non-Af Amer) 80.0 ml/min BUN/Creatinine Ratio 34.8 H (10-20) Glucose 96 (70-99(Fasting)) mg/dl POC Glucose 173 H 92 (70-99) mg/dl Calcium 9.3 (8.5-10.1) mg/dl 12/26/21 12/26/21 Range/Units 20:18 16:09 Sodium (136-145) mmol/L Potassium (3.5-5.1) mmol/L Chloride (98-107) mmol/L Carbon Dioxide (21-32) mmol/L Anion Gap (3-11) BUN (6-23) mg/dl Creatinine (0.6-1.2) mg/dl Est Cr Clr Drug Dosing ml/min Est GFR ( Amer) ml/min Est GFR (Non-Af Amer) ml/min BUN/Creatinine Ratio (10-20) Glucose (70-99(Fasting)) mg/dl POC Glucose 153 H 244 H (70-99) mg/dl Calcium (8.5-10.1) mg/dl Resident Activity Tracking Resident Involvement: Resident Care Provided Care Provided: Adult [facility] Medicine
[2021-12-27] MEDS: INSULIN ASPART PER UNIT SC SCH ×4 (08:00→20:44)
[2021-12-27] MEDS: APIXABAN 5 MG TABLET PO SCH ×2 (08:21→20:36)
[2021-12-27] MEDS: LOSARTAN POTASSIUM 50 MG TAB PO SCH (08:21)
[2021-12-27] MEDS: ATORVASTATIN 10 MG TAB PO SCH (08:21)
[2021-12-27] MEDS: METOPROLOL SUCC 50MG EXT REL TAB PO SCH (08:21)
[2021-12-27] MEDS: predniSONE 20 MG TAB PO SCH (08:22)
[2021-12-27] MEDS: CHOLECALCIFEROL 1,000 UNITS 25 MCG TAB PO SCH (08:22)
[2021-12-27] MEDS: FUROSEMIDE INJ 20 MG/2 ML VIAL IV SCH (08:22)
[2021-12-27 08:31] LABS: BUN Creatinine Ratio 34.8 (10-20); Calcium 9.3 mg/dl (8.5-10.1); Creatinine Clr Calc Pharmacy 60.2 ml/min; Est GFR (African American) 92.7 ml/min
[2021-12-28 06:23] LABS: BUN Creatinine Ratio 35.7 (10-20); Calcium 9.1 mg/dl (8.5-10.1); Creatinine Clr Calc Pharmacy 56.8 ml/min; Est GFR (African American) 90.9 ml/min; Est GFR (Non-African American) 78.5 ml/min; Potassium 3.8 mmol/L (3.5-5.1)
[2021-12-28] MEDS: INSULIN ASPART PER UNIT SC SCH ×3 (08:28→12:58)
[2021-12-28] MEDS: APIXABAN 5 MG TABLET PO SCH (08:41)
[2021-12-28] MEDS: CHOLECALCIFEROL 1,000 UNITS 25 MCG TAB PO SCH (08:41)
[2021-12-28] MEDS: FUROSEMIDE INJ 20 MG/2 ML VIAL IV SCH (08:41)
[2021-12-28] MEDS: METOPROLOL SUCC 50MG EXT REL TAB PO SCH (08:42)
[2021-12-28] MEDS: LOSARTAN POTASSIUM 50 MG TAB PO SCH (08:42)
[2021-12-28] MEDS: ATORVASTATIN 10 MG TAB PO SCH (08:42)
[2021-12-28] MEDS: predniSONE 20 MG TAB PO SCH (08:42)
--- NOTE | 2021-12-28 08:47 | XRay Report ---
XR chest 1V portable CLINICAL HISTORY: Shortness of breath. Evaluate for pulmonary edema. COMPARISON STUDY: 12/24/2021 TECHNIQUE: 1 view of the chest FINDINGS: Single frontal view of the chest demonstrates the heart to again be enlarged. There is a decreased in spiratory effort with elevation of the hemidiaphragms and crowding of the bronchovascular markings at the lung bases and centrally. The lungs are clear of alveolar opacities. There is no evidence for pl eural effusion. There is no evidence for vascular congestion. There is no acute osseous pathology. IMPRESSION: 1. . There is a decreased inspiratory effort with otherwise no acute chest disease. Resolution of vas cular congestion. ACT 112: Negative or not required by law. Electronically signed by: Adam Noble M.D. 12/28/2021 8:46 AM
--- NOTE | 2021-12-28 09:41 | Hospitalist Progress Note ---
Date of Service December 28, 2021 Assessment & Plan (1) RSV (respiratory syncytial virus pneumonia): Plan: 86 yo female with extensive PMHx who presented to ER with shortness of breath, diarrhea, cough and nausea starting four days ago. Acute hypoxic respiratory failure sec to Reactive airway disease due to RSV and possible fluid overload -No history of asthma or COPD but usually needs albuterol when she gets sick and significant improvement with nebulizers in the emergency room. - +RSV on admission -Solu-Medrol 40mg IV x1, then prednisone 40mg PO daily for 3-5 days -Duonebs qh4 prn -supplement O2 as needed, ween as able; will need 2-step prior to discharge -Recommend outpatient follow up with PCP for PFTs -Droplet isolation precautions -PT/OT ordered 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 fraction -Suspect minimally contributory towards acute respiratory failure with hypoxia given significant improvement after duonebs suspect her hypoxia mostly related to reactive airway disease as above -appears euvolemic on exam -Lasix 40mg IV given in ER, continue 20mg IV daily (usual home dose is 20mg PO daily) -Low Na, heart healthy diet Type 2 diabetes mellitus -HbA1C 6.4 in July, repeat 6.1 (12/24) -Hold glimepiride and Trulicity (once weekly - next dose on Friday) -on SSI -was given two doses of glimepiride on 12/25 with a asymptomatic hypoglycemic episode the following morning, suspect she has these at home without realization, would consider discontinuation of glimepiride on discharge or at least a decrease in dose if patient agrees; f/u PCP Moderate aortic stenosis -Moderate to severe on recent echocardiogram in November. 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 This may represent enlarging bone island, however correlation for osteoblastic disease is recommended. -Consider bone scan as outpatient Persistent atrial fibrillation -Continue Eliquis for anticoagulation -cont. metoprolol 50mg PO daily Hypertension -Continue losartan, metoprolol and Lasix (dosing as above) Hypercholesteremia -Continue atorvastatin 5mg PO daily SADIQ (obstructive sleep apnea) -CPAP HS DVT ppx: Eliquis FEN/GI: low Na, HH Code Status: conditional code, DNR only Dispo: PCU/tele (2) Reactive airway disease: (3) 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 fraction: (4) Moderate aortic stenosis: (5) Abnormal head CT: (6) Persistent atrial fibrillation: (7) Type 2 diabetes mellitus: (8) Hypertension: (9) Hypercholesteremia: (10) SADIQ (obstructive sleep apnea): Admission and Anticipated Discharge Date Admission Date: December 24, 2021 Subjective Breathing better. Has been ambulating. diffuse expiratory wheezing. Patient seen at bedside this morning. No overnight events including hypoglycemic events. No acute complaints. Feels even more improved from yesterday. Has been moving around room. Still on 2L NC. Denies chest pain, abdominal pain, PENA, N/V. Physical Exam Physical Exam: Constitutional: AOx3, in no acute distress, pleasant. Vitals as above. NC in place. HEENT: No scleral injection or discharge.Moist mucous membranes. Neck: Supple without lymphadenopathy. Trachea midline. Lungs: Improving mild diffuse expiratory wheezes, no rales/rhonchi, no accessory muscle use Cardiac: RRR. No murmurs.Trace pretibial edema bilaterally. Abdomen: +BS. Soft, nontender, and nondistended.No guarding. MSK: No cyanosis or clubbing. Skin: warm, dry Results & Data Results & Data ([facility]) Vital Signs (Past 12 Hours) Vital Signs Temp Pulse Pulse Resp BP Pulse Ox O2 Del Method 12/28/21 07:25 36.4 C L 84 16 132/87 97 Nasal Cannula 12/28/21 03:47 Nasal Cannula 12/28/21 01:01 36.4 C L 119 H 18 131/89 96 Nasal Cannula 12/27/21 23:43 36.7 C 95 H 20 114/82 94 Nasal Cannula O2 Flow Rate 12/28/21 07:25 2 12/28/21 03:47 2 12/28/21 01:01 3 12/27/21 23:43 2
--- NOTE | 2021-12-28 15:57 | Discharge Summary ---
Date of Service December 28, 2021 Admission HPI Per Admitting Provider Araceli Garrett is an 86 year old female who presents to the ER with shortness of breath, diarrhea, cough and nausea starting four days ago. No fever or chills, nasal congestion of sinus pain. No nausea, vomiting or abdominal pain. She did not take her usual meds this morning. She is not usually on home oxygen at home but measured her O2 sats today and they were 82% on room air therefore decided to come to the emergency room for evaluation. In the ER she was given x2 duonebs 3ml and has already noticed night and day improvement after having these. She denies any history of asthma or COPD but does report having an albuterol inhaler when she gets sick. No seasonally allergies. She has moderate-severe aortic stenosis and CXR was also concerning for pulmonary edema therefore she was given one dose of intravenous Lasix 40mg. RSV PCR was positive. She was referred to medicine for admission adn ongoing management of hypoxia, CHF and RSV. However her O2 was turned down to room air with O2 sats 90% while in the ER. Principal Diagnosis acute hypoxic respiratory failure 2/2 RSV Discharge Exam Constitutional: AOx3, in no acute distress, pleasant. Vitals as above.NC in place. HEENT: No scleral injection or discharge.Moist mucous membranes. Neck: Supple without lymphadenopathy. Trachea midline. Lungs: Improving mild diffuse expiratory wheezes, no rales/rhonchi, no accessory muscle use Cardiac: RRR. No murmurs.Trace pretibial edema bilaterally. Abdomen: +BS. Soft, nontender, and nondistended.No guarding. MSK: No cyanosis or clubbing. Skin: warm, dry Discharge Data Allergies Allergy/AdvReac Type Severity Reaction Status Date / Time codeine AdvReac Mild DIARRHEA Verified 12/06/21 10:01 Consultations 12/24/21 12:59 ED Decision to Admit Stat Ordered Studies Laboratory Results WBC 8.11 K/ul (4.8-10.8) 12/26/21 06:06 RBC 5.04 M/uL (3.93-5.22) 12/26/21 06:06 Hgb 16.2 g/dl (12.0-16.0) H 12/26/21 06:06 POC Hgb 16.0 g/dl (12.0-16.0) 12/24/21 12:57 Hct 49.9 % (34.1-44.9) H 12/26/21 06:06 POC Hct 47 % (37-47) 12/24/21 12:57 MCV 99.0 fL (80.0-100.0) 12/26/21 06:06 MCH 32.1 pg (25.0-34.0) 12/26/21 06:06 MCHC 32.5 g/dL (32.0-36.0) 12/26/21 06:06 RDW Std Deviation 48.4 fL (36.4-46.3) H 12/26/21 06:06 RDW Coeff of Umair 13.4 % (11.5-14.5) 12/26/21 06:06 Plt Count 123 K/uL (130-400) L 12/26/21 06:06 MPV 12.4 fL (9.4-12.3) H 12/26/21 06:06 Immature Gran % (Auto) 0.2 % 12/26/21 06:06 Neut % (Auto) 60.5 % 12/26/21 06:06 Lymph % (Auto) 28.4 % 12/26/21 06:06 [place] % (Auto) 9.9 % 12/26/21 06:06 Eos % (Auto) 0.6 % 12/26/21 06:06 Baso % (Auto) 0.4 % 12/26/21 06:06 Neut # (Auto) 4.91 K/uL (1.4-6.5) 12/26/21 06:06 Lymph # (Auto) 2.30 K/uL (1.2-3.4) 12/26/21 06:06 [place] # (Auto) 0.80 K/uL (0.24-0.82) 12/26/21 06:06 Eos # (Auto) 0.05 K/uL (0-0.50) 12/26/21 06:06 Baso # (Auto) 0.03 K/uL (0-0.2) 12/26/21 06:06 Immature Gran # (Auto) 0.02 K/uL (0.00-0.02) 12/26/21 06:06 Absolute Nucleated RBC 0.02 K/uL (0-0) H 12/24/21 11:07 Nucleated RBC % (auto) 0.3 % 12/24/21 11:07 Platelet Estimate Decreased (Normal) L 12/25/21 07:07 PT 11.9 Seconds (9.0-12.0) 12/24/21 12:48 INR 1.1 (0.9-1.1) 12/24/21 12:48 APTT 30.1 Seconds (21.0-31.0) 12/24/21 12:48 PTT Ratio 1.1 12/24/21 12:48 VBG pH 7.38 (7.36-7.41) 12/24/21 11:06 VBG pCO2 50 mmHg (38-50) 12/24/21 11:06 VBG pO2 53 mmHg 12/24/21 11:06 VBG HCO3 30 mmol/L 12/24/21 11:06 VBG O2 Saturation 86.5 % 12/24/21 11:06 VBG Base Excess 3.4 mEq/L 12/24/21 11:06 POC Sodium 142 mmol/L (135-144) 12/24/21 12:57 Sodium 144 mmol/L (136-145) 12/28/21 05:44 POC Potassium 3.4 mmol/L (3.3-5.0) 12/24/21 12:57 Potassium 3.8 mmol/L (3.5-5.1) 12/28/21 05:44 POC Chloride 103 mmol/L (101-112) 12/24/21 12:57 Chloride 103 mmol/L (98-107) 12/28/21 05:44 Carbon Dioxide 37 mmol/L (21-32) H 12/28/21 05:44 POC Total CO2 25 mmol/L (24-31) 12/24/21 12:57 Anion Gap 4 (3-11) 12/28/21 05:44 POC Anion Gap 19.0 mmol/L (16-25) 12/24/21 12:57 POC BUN 11 mg/dl (7-18) 12/24/21 12:57 BUN 25 mg/dl (6-23) H 12/28/21 05:44 Creatinine 0.70 mg/dl (0.6-1.2) 12/28/21 05:44 POC Creatinine 0.6 mg/dl (0.6-1.3) 12/24/21 12:57 Est Cr Clr Drug Dosing 56.8 ml/min 12/28/21 05:44 Est GFR ( Amer) 90.9 ml/min 12/28/21 05:44 Est GFR (Non-Af Amer) 78.5 ml/min 12/28/21 05:44 BUN/Creatinine Ratio 35.7 (10-20) H 12/28/21 05:44 Glucose 96 mg/dl (70-99(Fasting)) 12/28/21 05:44 POC Glucose 169 mg/dl (70-99) H 12/28/21 12:05 POC Glucose (other) 202 mg/dl (70-99) H 12/24/21 12:57 Estimat Average Glucose 128 mg/dl 12/25/21 07:07 Hemoglobin A1c 6.1 % (4.5-5.6) H 12/25/21 07:07 Calcium 9.1 mg/dl (8.5-10.1) 12/28/21 05:44 POC Ioniz Calcium [place]ma 1.11 mmol/l (1.12-1.32) L 12/24/21 12:57 Total Bilirubin 0.7 mg/dl (0.2-1.0) 12/26/21 06:06 AST 16 U/L (13-39) 12/26/21 06:06 ALT 5 U/L (7-52) L 12/26/21 06:06 Alkaline Phosphatase 56 U/L (34-104) 12/26/21 06:06 Troponin I High Sens 8.8 pg/ml (0-14) 12/24/21 11:07 B-Natriuretic Peptide 230 pg/ml (0-100) H 12/24/21 11:07 Total Protein 6.2 gm/dl (6.0-8.3) 12/26/21 06:06 Albumin 3.4 gm/dl (3.4-5.0) 12/26/21 06:06 Globulin 2.8 gm/dl (2.5-4.0) 12/26/21 06:06 Albumin/Globulin Ratio 1.2 (0.9-2) 12/26/21 06:06 Lipase 37 U/L (11-82) 12/24/21 11:07 Procalcitonin < 0.05 ng/ml (0-0.5) 12/24/21 15:02 SARS-CoV-2 (PCR) NEGATIVE (Negative) 12/24/21 11:20 Influenza Type A (PCR) Negative (Neg) 12/24/21 11:20 Influenza Type B (PCR) Negative (Neg) 12/24/21 11:20 RSV (RT-PCR) Positive (Neg) A* 12/24/21 11:[address] 12/24/21 10:57 CT head/brain wo con CLINICAL HISTORY: ams Technique: Contiguous axial CT images of the head were acquired from the base of the skull to the vertex without intravenous contrast administration. Images were viewed in brain, subdural and bone windows. Automated dose lowering techniques and/or adjustment according to patient size were utilized for this exam. Comparison: Comparison is made to CT head 12/05/2013 Findings: Exam is limited by patient motion. The ventricles, basal cisterns, and cerebral sulci are normal. There is no acute intracranial hemorrhage or evidence of acute territorial infarction. Neither mass effect, shift of the midline structures, nor abnormal extra-axial fluid collections are shown. Imaged portions of the paranasal sinuses and mastoid air cells are clear. The orbits appear normal. Incidental note is made of a 26 mm sclerotic lesion in th e right frontal calvarium which appears enlarged from prior exam. Impression: 1. No acute intracranial hemorrhage, no evidence of acute territorial infarction or other acute intracranial disease process. 2. Interval enlargement of a sclerotic lesion in the left frontal calvarium. This may represent enlarging bone island, however correlation for osteoblastic disease is recommended. ACT 112: Positive. There are findings on this exam that require communication between the performing entity and the patient following Patient Test Result Information Act ([place] Act 112) guidelines. Electronically signed by: Genaro Hinson M.D. 12/24/2021 12:19 PM Chest X-Ray 12/28/21 06:00 XR chest 1V portable CLINICAL HISTORY: Shortness of breath. Evaluate for pulmonary edema. COMPARISON STUDY: 12/24/2021 TECHNIQUE: 1 view of the chest FINDINGS: Single frontal view of the chest demonstrates the heart to again be enlarged. There is a decreased inspiratory effort with elevation of the hemidiaphragms and crowding of the bronchovascular markings at the lung bases and centrally. The lungs are clear of alveolar opacities. There is no evidence for pleural effus ion. There is no evidence for vascular congestion. There is no acute osseous pathology. IMPRESSION: 1. . There is a decreased inspiratory effort with otherwise no acute chest disease. Resolution of vascular congestion. ACT 112: Negative or not required by law. Electronically signed by: Adam Noble M.D. 12/28/2021 8:46 AM Hospital Course (1) RSV (respiratory syncytial virus pneumonia): 86 yo female with extensive PMHx who presented to ER with shortness of breath, diarrhea, cough and nausea starting four days ago. Acute hypoxic respiratory failure sec to Reactive airway disease due to RSV and possible fluid overload -No history of asthma or COPD but usually needs albuterol when she gets sick and significant improvement with nebulizers in the emergency room. - +RSV on admission -Solu-Medrol 40mg IV x1, prednisone 40mg x4 days, d/c'd on discharge -Duonebs qh4 prn, PT/OT -supplement O2 as needed, ween as able; failed 2 step, will need to go home with home oxygen and f/u with PCP -Recommend outpatient follow up with PCP for PFTs 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 fraction -Suspect minimally contributory towards acute respiratory failure with hypoxia given significant improvement after duonebs suspect her hypoxia mostly related to reactive airway disease as above -appears euvolemic on exam -Lasix 40mg IV given in ER, continue 20mg IV daily (usual home dose is 20mg PO daily) -Low Na, heart healthy diet Type 2 diabetes mellitus -HbA1C 6.4 in July, repeat 6.1 (12/24) -Held glimepiride and Trulicity (once weekly - next dose on Friday) during stay -was given two doses of glimepiride on 12/25 with a asymptomatic hypoglycemic episode the following morning, suspect she has these at home without realization, would consider discontinuation of glimepiride on discharge or at least a decrease in dose; patient and her son agree to discontinue glimepiride at this time and will f/u with PCP -continue home Trulicity Moderate aortic stenosis -Moderate to severe on recent echocardiogram in November. Followed up with tablet technician following this but deferring TAVR. Abnormal head CT -Interval enlargement of a sclerotic lesion in the left frontal calvarium. This may represent enlarging bone island, however correlation for osteoblastic disease is recommended. -Consider bone scan as outpatient Persistent atrial fibrillation -Continue Eliquis for anticoagulation -cont. metoprolol 50mg PO daily Hypertension -Continue losartan, metoprolol and Lasix (dosing as above) Hypercholesteremia -Continue atorvastatin 5mg PO daily SADIQ (obstructive sleep apnea) -CPAP HS (2) Reactive airway disease: (3) 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 fraction: (4) Moderate aortic stenosis: (5) Abnormal head CT: (6) Persistent atrial fibrillation: (7) Type 2 diabetes mellitus: (8) Hypertension: (9) Hypercholesteremia: (10) SADIQ (obstructive sleep apnea): Total Time Total Time Spent Total Time Spent (In Minutes): 30 Discharge Plan Discharge Items Patient Disposition: Home - Self-Care Reason For Visit: RSV PNEUMONIA, REACTIVE AIRWAY DISEASE, ACUTE CHF Discharge Diagnosis: acute hypoxic respiratory failure 2/2 RSV Activity: Per Instructions section Non-emergency contact: Primary Care Provider Call non-emergency contact if: you have any medication questions, your symptoms worsen and you have a fever Follow-up/Referrals: Kia Hoyt PA-C [Primary Care Provider] - 01/02/22 1:00 pm Diet: Carb Consistent or DM2, Heart Healthy and Low Sodium (2gm) Addtl Attending Provider Instructions: You were admitted to the hospital for having a low oxygen saturation in the 80s. We found you to be positive for a respiratory virus also known as RSV. Typically these viruses need supportive care and in your case we treated you with steroids, anti-inflammatory antibiotics, inhalers, and supplemental oxygen. Your condition seems to have improved greatly with the exception of continued oxygen support. We will send you home with an oxygen tank to help maintain your oxygen saturation. You should follow up with your primary care physician in the next week for further evaluation and possible discontinuation of the oxygen. Your PCP can als further guide you on how to get pulmonary function testing (PFTs) for further evaluation of your reactive airway disease. During your hospital stay, we also noticed you had a hypoglycemic episode in the 50s the morning after taking your home glimeperide. As you get older, it is extremely important to keep your sugars higher rather than on the lower ends. Your A1c which is a measure of your diabetes status is well controlled at this time so tight sugar control is not necessary and may be more harmful than beneficial. We suggest you discontinue your glimepiride at this time and follow up with your primary care provider for further guidance. New Medications: -Home Oxygen Discontinue: -Glimepiride Pending Studies at Discharge: No Stand-Alone Forms: [facility], Smoking Cessation Medications and DC Order Prescriptions: Continued Eliquis 5 mg tablet 5 mg PO BID Qty: 180 3RF atorvastatin 10 mg tablet 5 mg PO DAILY Qty: 90 3RF Rx Instructions: or as directed dulaglutide 0.75 mg/0.5 mL pen injector 0.75 mg subcut WK Qty: 16 3RF Rx Instructions: takes on Sat losartan 100 mg tablet 50 mg PO DAILY Qty: 90 3RF metoprolol succinate 50 mg tablet extended release 24 hr 50 mg PO DAILY Qty: 90 3RF potassium chloride 20 mEq tablet extended release 20 meq PO DAILY Qty: 90 3RF furosemide [Lasix] 20 mg tablet 20 mg PO DAILY Qty: 30 5RF cholecalciferol (vitamin D3) 1,000 unit (25 mcg) tablet 1,000 units PO DAILY Label Comments: confirm if patient is still taking this medication tramadol [Ultram] 50 mg tablet 50 mg PO Q6H PRN (Reason: pain) Qty: 20 0RF Discontinued glimepiride 4 mg tablet 4 mg PO BID Qty: 180 3RF Discharge Orders: Discharge Order (Routine); Ordered 12/28/21 Ordered By: Mandeep Ladd/Other Patient Handouts: Hypoglycemia (Low Blood Sugar), Managing Type 2 Diabetes Admission Data Admit Date/Time: 12/24/21 13:47 Attending Provider: Ezio Fitzgerald Admit Provider: Dwain Calix Primary Care Provider: Kia Hoyt Other Providers: Dwain Calix Supervising Physician Co-Signing Physician Notes Attending attestation Pt seen and examined in concert with Dr. Ghotra. In agreement with the documented findings as noted in the resident documentation with any exceptions or additions as noted here. Shortness of breath approaching baseline without significant cough complaint, lightheadedness, fever, chills. AHRF in the setting of RSV with concern for underlying obstructive disease - completed prednisone burst today. Will need O2 ongoing following discharge with monitoring by PCP. HFpEF with exacerbation - improved SOB with tolerance of near home furosemide dosing, restart home dose on discharge. DMII with hypoglycemia - A1c below goal for age. would strongly encourage d/c glimepiride on discharge, continue trulicity, consider adjusting dose in outpatient. Abnormality on head CT - sclerotic lesion of L frontal calvarium - continue evaluation as outpatient, consider bone scan Else see resident documentation as noted. Total attending physician time spent on this patient's care on the day of discharge: 40 minutes. Resident Activity Tracking Resident Involvement: Resident Care Provided Care Provided: Adult Hospital Medicine
[2021-12-29] MEDS ORDERED: FUROSEMIDE 20 MG TAB PO SCH (09:00)
== END 2021-12-28 16:50 | disposition home or self-care (01) | DRG 193 ==
LOC: ED 10:28 → 2S 13:47 → SUATTDRO 13:47 → 2S 15:33 → 3E 12-28 00:59

== ENCOUNTER 2023-01-15 07:35 | Inpatient (IN) ==
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
--- NOTE | 2023-01-15 08:40 | XRay Report ---
SINGLE VIEW CHEST CLINICAL HISTORY: Atypical chest pain. Dyspnea. FINDINGS: An AP, portable, upright chest radiograph is compared to study dated 12/28/2021. The examina tion is degraded by portable technique and apical lordotic positioning. The heart is enlarged. There is pulmonary vascular congestion and mild interstitial edema. There is bibasilar scarring/atelectasis . No large pleural effusion or pneumothorax is seen. The skeletal structures are osteopenic. The bony thorax is grossly intact. Degenerative change is noted in the shoulders. IMPRESSION: Cardiomegaly with evidence of congestive failure and mild pulmonary edema. ACT 112: Negative or not required by law. Electronically signed by: Jeff Zhang M.D. 01/15/2023 8:38 AM
[2023-01-15 09:29] LABS: Basophils # (auto) 0.06 K/uL (0-0.2); Basophils % (auto) 0.8 %; Eosinophils # (auto) 0.18 K/uL (0-0.50); Eosinophils % (auto) 2.3 %; Hematocrit (blood only) 45.5 % (37.0-47.0); Hemoglobin 15.4 g/dl (12.0-16.0); Immature Granulocytes # (auto) 0.04 K/uL (0.01-0.20); Immature Granulocytes % (auto) 0.5 %; Lymphocytes % (auto) 16.9 %; Mean Corpuscular Hemoglobin 32.2 pg (25.0-34.0); Mean Corpuscular Hgb Conc 33.8 g/dL (32.0-36.0); Mean Corpuscular Volume 95.2 fL (80.0-100.0); Mean Platelet Volume 10.6 fL (9.4-12.4); Monocytes # (auto) 0.58 K/uL (0.11-0.59); Monocytes % (auto) 7.5 %; Neutrophils # (auto) 5.53 K/uL (1.40-6.50); Platelet Count 137 K/uL (130-400); RDW Coefficient of Variation 13.3 % (11.5-14.5); RDW Standard Deviation 47.1 fL (36.4-46.3); Red Blood Count 4.78 M/uL (4.20-5.40); White Blood Count 7.69 K/ul (4.8-10.8)
[2023-01-15 09:44] LABS: Alanine Aminotransferase 9 U/L (7-52); Albumin Globulin Ratio 1.1 (0.9-2); Albumin Level 3.7 gm/dl (3.4-5.0); Alkaline Phosphatase 68 U/L (34-104); Anion Gap 5 (3-11); Aspartate Aminotransferase 16 U/L (13-39); BUN Creatinine Ratio 15.7 (10-20); Bilirubin,Total 1.8 mg/dl (0.2-1.0); Blood Urea Nitrogen 11 mg/dl (6-23); Calcium 9.5 mg/dl (8.6-10.3); Carbon Dioxide 34 mmol/L (21-32); Chloride 105 mmol/L (98-107); Est GFR (African American) 90.3 ml/min; Est GFR (Non-African American) 77.9 ml/min; Globulin 3.3 gm/dl (2.5-4.0); Glucose 188 mg/dl (70-99(Fasting)); Lipase 30 U/L (11-82); Magnesium 1.7 mg/dl (1.7-2.4); Phosphorus 2.6 mg/dl (2.5-4.9); Potassium 4.1 mmol/L (3.5-5.1); Sodium 144 mmol/L (136-145)
[2023-01-15 09:49] LABS: Troponin I High Sensitivity 10.3 pg/ml (0-14)
[2023-01-15] MEDS ORDERED: FUROSEMIDE INJ 20 MG/2 ML VIAL IV ONE (09:53)
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
[2023-01-15] MEDS ORDERED: DEXTROSE 50% 50 ML SYRINGE IV PRN (16:44)
[2023-01-15] MEDS ORDERED: POLYETHYLENE (MIRALAX) 17 GM PACK PO PRN (16:44)
[2023-01-15] MEDS ORDERED: GLUCAGON FOR INJ 1 MG VIAL SQ PRN (16:44)
[2023-01-15] MEDS ORDERED: GLUCOSE 40% GEL 15 GM TUBE PO PRN (16:44)
[2023-01-15] MEDS ORDERED: ACETAMINOPHEN 325 MG TAB PO PRN (16:44)
[2023-01-15] MEDS ORDERED: GLUCOSE 10 TAB/TUBE PO PRN (16:44)
[2023-01-15] MEDS ORDERED: CARBOHYDRATES FOR HYPOGLYCEMIA PO PRN (16:44)
[2023-01-15] MEDS ORDERED: traMADol HCL 50 MG TABLET PO PRN (16:44)
[2023-01-15] MEDS: APIXABAN 5 MG TABLET PO SCH (17:27)
[2023-01-15] MEDS: LOSARTAN POTASSIUM 50 MG TAB PO SCH (17:27)
[2023-01-15] MEDS: METOPROLOL SUCC 50MG EXT REL TAB PO SCH (17:28)
[2023-01-15] MEDS: INSULIN ASPART PER UNIT CHARGE SC SCH ×2 (17:32→20:50)
[2023-01-15] MEDS: POTASSIUM CHLORIDE CRTAB 20 MEQ TABCR PO SCH (20:49)
[2023-01-16 07:19] LABS: Basophils # (auto) 0.04 K/uL (0-0.2); Basophils % (auto) 0.5 %; Eosinophils # (auto) 0.26 K/uL (0-0.50); Eosinophils % (auto) 3.5 %; Hematocrit (blood only) 43.6 % (37.0-47.0); Hemoglobin 14.5 g/dl (12.0-16.0); Immature Granulocytes # (auto) 0.02 K/uL (0.01-0.20); Immature Granulocytes % (auto) 0.3 %; Lymphocytes # (auto) 1.59 K/uL (1.2-3.4); Lymphocytes % (auto) 21.4 %; Mean Corpuscular Hemoglobin 32.6 pg (25.0-34.0); Mean Corpuscular Hgb Conc 33.3 g/dL (32.0-36.0); Mean Platelet Volume 10.6 fL (9.4-12.4); Monocytes # (auto) 0.72 K/uL (0.11-0.59); Monocytes % (auto) 9.7 %; Neutrophils # (auto) 4.81 K/uL (1.40-6.50); Neutrophils % (auto) 64.6 %; Platelet Count 120 K/uL (130-400); RDW Coefficient of Variation 13.3 % (11.5-14.5); RDW Standard Deviation 48.2 fL (36.4-46.3); Red Blood Count 4.45 M/uL (4.20-5.40); White Blood Count 7.44 K/ul (4.8-10.8)
[2023-01-16 07:27] LABS: BUN Creatinine Ratio 22.5 (10-20); Calcium 9.1 mg/dl (8.6-10.3); Est GFR (African American) 88.8 ml/min; Est GFR (Non-African American) 76.6 ml/min; Potassium 4.3 mmol/L (3.5-5.1)
[2023-01-16] MEDS: APIXABAN 5 MG TABLET PO SCH ×2 (08:14→20:16)
[2023-01-16] MEDS: METOPROLOL SUCC 50MG EXT REL TAB PO SCH (08:14)
[2023-01-16] MEDS: POTASSIUM CHLORIDE CRTAB 20 MEQ TABCR PO SCH ×2 (08:14→20:16)
[2023-01-16] MEDS: LOSARTAN POTASSIUM 50 MG TAB PO SCH (08:15)
[2023-01-16] MEDS: INSULIN ASPART PER UNIT CHARGE SC SCH ×4 (08:40→20:16)
--- NOTE | 2023-01-16 12:33 | Hospitalist Progress Note ---
Date of Service January 16, 2023 Assessment & Plan (1) Acute respiratory failure with hypoxia: Plan: Admitted to the hospital and found to be in acute hypoxic respiratory failure 2/2 acute on chronic heart failure with preserved ejection fraction Was Hypoxic to 82% while in the ER CXR showed evidence of cardiomegaly with pulmonary vascular congestion and mild interstitial edema -Currently on nasal cannula oxygen and also received extra doses of IV Lasix. -Clinically much improved, states shortness of breath has resolved. (2) 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 fraction: Plan: Last echo 08/07/2022: Technically challenging study, EF 60-65% without regional wall motion abnormalities noted Continue losartan 50 mg daily, metoprolol extended release 50 mg daily, statin -Continue IV Lasix 40 mg twice daily -Monitor input and output, daily weight (3) Aortic stenosis: Plan: Moderate to severe aortic stenosis Noted on last echo. Patient is acutely volume overloaded while in the ER, will diurese as noted. Caution preload dependence in the setting of moderate to severe aortic stenosis, patient with narrow euvolemic range. Suspect current heart failure exacerbation was in the setting of salt indiscretion rather than progressive of her AMS. If she has continued symptoms despite near euvolemia, or recurrent worsening despite low salt intake repeat echo and follow-up sooner for . Was recently seen by cardiology as noted (4) Atrial fibrillation: Plan: Atrial fibrillation Rate controlled on admission, EKG as noted Continue apixaban 5 mg p.o. twice daily. [id number] 6. Continue metoprolol as noted (5) Diabetes mellitus: Plan: Type II DM Hold home antiglycemic's Glucose checks AC/at bedtime Goal BSG [id number] On weekly dulaglutide. SSI only ordered, add basal-bolus if persistently BSG >180 -Blood glucose under good control (6) Hypercholesteremia: Plan: Hyperlipidemia Continue statin (7) SADIQ (obstructive sleep apnea): Plan DVT prophylaxis: Anticoagulated Disposition: PCU for acute hypoxic CHF with A-fib CODE STATUS: DNR/DNI. Patient reports of her breathing was so bad that you are require temporary intubation she would rather be kept comfortable at that point. This is a change from her prior conditional code. Noted. Diet: Heart healthy, DM 2, low-sodium Admission and Anticipated Discharge Date Admission Date: January 15, 2023 Subjective Patient seen and examined, states her shortness of breath is much better Review of Systems Review of Systems: All systems reviewed are negative, apart from the ones contained in the history. Physical Exam Physical Exam: The patient is awake, alert and oriented 3, well developed and well nourished, normocephalic and atraumatic, lying in bed and in no acute distress. HEENT--PERRL, EOMI, mucous membranes and oropharynx mildly dry Neck--supple. No JVD. No bruits. Thyroid normal, trachea midline, no adenopathy. Heart--normal S1 and S2. Ejection systolic murmur Lungs--clear bilaterally, no respiratory distress, no accessory muscle use. Abdomen--normal bowel sounds and soft. Mild epigastric and left sided abdominal pain Extremities--no cyanosis or clubbing. No edema. Dermatologic--normal skin turgor, normal color, no abnormal lymph nodes, no rash. Neurologic--cranial nerves II through XII grossly intact. Rheumatologic--normal range of motion. Psychiatric--normal affect. Results & Data Results & Data Vital Signs (Past 12 Hours) Vital Signs Temp Pulse Pulse Resp BP BP Pulse Ox 01/16/23 10:25 98.2 F 75 18 103/62 96 01/16/23 09:15 70 01/16/23 07:05 98.4 F 67 20 121/65 92 01/16/23 03:55 98.2 F 54 L 20 104/65 94 O2 Del Method O2 Flow Rate 01/16/23 10:25 Nasal Cannula 2 01/16/23 09:15 01/16/23 07:05 Nasal Cannula 2 01/16/23 03:55 Nasal Cannula 2 PG Care Time/CCT Total # of Minutes Spent Total Time Spent with Patient: Total time spent is greater than 50% in coordination of care (as documented) at patient's floor/unit and/or counseling patient: Coding Level of Care Code 98589 SUB INP/OBS CARE 2/35MIN Diagnoses Acute respiratory failure with hypoxia J96.01 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 fraction I50.33 Aortic stenosis I35.0 Atrial fibrillation I48.91 Diabetes mellitus E11.9 Hypercholesteremia E78.00 SADIQ (obstructive sleep apnea) G47.33 Time Spent (min) 35
[2023-01-16] MEDS: FUROSEMIDE 40 MG/4 ML VIAL IV SCH (18:37)
[2023-01-17 05:58] LABS: Basophils # (auto) 0.05 K/uL (0-0.2); Basophils % (auto) 0.7 %; Eosinophils % (auto) 4.4 %; Hematocrit (blood only) 42.9 % (37.0-47.0); Hemoglobin 13.9 g/dl (12.0-16.0); Immature Granulocytes # (auto) 0.01 K/uL (0.01-0.20); Immature Granulocytes % (auto) 0.1 %; Lymphocytes # (auto) 1.57 K/uL (1.2-3.4); Lymphocytes % (auto) 23.2 %; Mean Corpuscular Hemoglobin 32.3 pg (25.0-34.0); Mean Corpuscular Hgb Conc 32.4 g/dL (32.0-36.0); Mean Corpuscular Volume 99.8 fL (80.0-100.0); Mean Platelet Volume 10.4 fL (9.4-12.4); Monocytes # (auto) 0.73 K/uL (0.11-0.59); Monocytes % (auto) 10.8 %; Neutrophils % (auto) 60.8 %; Platelet Count 122 K/uL (130-400); RDW Coefficient of Variation 13.3 % (11.5-14.5); RDW Standard Deviation 48.7 fL (36.4-46.3); White Blood Count 6.76 K/ul (4.8-10.8)
[2023-01-17 06:13] LABS: Calcium 8.8 mg/dl (8.6-10.3); Potassium 4.5 mmol/L (3.5-5.1)
[2023-01-17 06:19] LABS: Creatinine Clr Calc Pharmacy 44.8 ml/min; Est GFR (African American) 67.5 ml/min; Est GFR (Non-African American) 58.3 ml/min
--- NOTE | 2023-01-17 07:07 | Electrocardiogram Report ---
Test Reason : Blood Pressure : / mmHG Vent. Rate : 076 BPM Atrial Rate : 000 BPM P-R Int : 000 ms QRS Dur : 074 ms QT Int : 408 ms P-R-T Axes : 000 073 062 degrees QTc Int : 459 ms Atrial fibrillation Low voltage QRS Septal infarct , age undetermined Nonspecific T wave abnormality Abnormal ECG When compared with ECG of 24-DEC-2021 11:08, Septal infarct is now Present Confirmed by Tha Torres ([id number]) on 01/17/2023 7:07:09 AM Referred By: REFERRED SELF Confirmed By:Tha Torres
[2023-01-17] MEDS: INSULIN ASPART PER UNIT CHARGE SC SCH ×4 (08:06→20:49)
[2023-01-17] MEDS: POTASSIUM CHLORIDE CRTAB 20 MEQ TABCR PO SCH ×2 (08:40→20:49)
[2023-01-17] MEDS: FUROSEMIDE 40 MG/4 ML VIAL IV SCH ×2 (08:42→17:40)
[2023-01-17] MEDS: APIXABAN 5 MG TABLET PO SCH ×2 (08:42→20:49)
[2023-01-17] MEDS: LOSARTAN POTASSIUM 50 MG TAB PO SCH (08:45)
[2023-01-17] MEDS: METOPROLOL SUCC 50MG EXT REL TAB PO SCH (08:46)
--- NOTE | 2023-01-17 12:56 | Hospitalist Progress Note ---
Date of Service January 17, 2023 Assessment & Plan (1) Acute respiratory failure with hypoxia: Plan: Admitted to the hospital and found to be in acute hypoxic respiratory failure 2/2 acute on chronic heart failure with preserved ejection fraction Was Hypoxic to 82% while in the ER CXR showed evidence of cardiomegaly with pulmonary vascular congestion and mild interstitial edema -Currently on nasal cannula oxygen and also received extra doses of IV Lasix. -Clinically much improved, states shortness of breath has resolved. -Wean oxygen as tolerated, patient ordinarily not on oxygen at home (2) 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 fraction: Plan: Last echo 08/07/2022: Technically challenging study, EF 60-65% without regional wall motion abnormalities noted Continue losartan 50 mg daily, metoprolol extended release 50 mg daily, statin -Continue IV Lasix 40 mg twice daily -Monitor input and output, daily weight -Has been diuresing very well (3) Aortic stenosis: Plan: Moderate to severe aortic stenosis Noted on last echo. Patient is acutely volume overloaded while in the ER, will diurese as noted. Caution preload dependence in the setting of moderate to severe aortic stenosis, patient with narrow euvolemic range. Suspect current heart failure exacerbation was in the setting of salt indiscretion rather than progressive of her AMS. If she has continued symptoms despite near euvolemia, or recurrent worsening despite low salt intake repeat echo and follow-up sooner for . Was recently seen by cardiology as noted (4) Atrial fibrillation: Plan: Atrial fibrillation Rate controlled on admission, EKG as noted Continue apixaban 5 mg p.o. twice daily. [id number] 6. Continue metoprolol as noted (5) Diabetes mellitus: Plan: Type II DM Hold home antiglycemic's Glucose checks AC/at bedtime Goal BSG [id number] On weekly dulaglutide. SSI only ordered, add basal-bolus if persistently BSG >180 -Blood glucose under good control (6) Hypercholesteremia: Plan: Hyperlipidemia Continue statin (7) SADIQ (obstructive sleep apnea): Plan Wean off oxygen, discharge home in the next 24 hours DVT prophylaxis: Anticoagulated Disposition: PCU for acute hypoxic CHF with A-fib CODE STATUS: DNR/DNI. Patient reports of her breathing was so bad that you are require temporary intubation she would rather be kept comfortable at that point. This is a change from her prior conditional code. Noted. Diet: Heart healthy, DM 2, low-sodium Admission and Anticipated Discharge Date Admission Date: January 15, 2023 Subjective Patient seen and examined, states her shortness of breath is much better, denies chest pain Review of Systems Review of Systems: All systems reviewed are negative, apart from the ones contained in the history. Physical Exam Physical Exam: The patient is awake, alert and oriented 3, well developed and well nourished, normocephalic and atraumatic, lying in bed and in no acute distress. HEENT--PERRL, EOMI, mucous membranes and oropharynx mildly dry Neck--supple. No JVD. No bruits. Thyroid normal, trachea midline, no adenopathy. Heart--normal S1 and S2. Ejection systolic murmur Lungs--clear bilaterally, no respiratory distress, no accessory muscle use. Abdomen--normal bowel sounds and soft. Mild epigastric and left sided abdominal pain Extremities--no cyanosis or clubbing. No edema. Dermatologic--normal skin turgor, normal color, no abnormal lymph nodes, no rash. Neurologic--cranial nerves II through XII grossly intact. Rheumatologic--normal range of motion. Psychiatric--normal affect. Results & Data Results & Data Vital Signs (Past 12 Hours) Vital Signs Temp Pulse Pulse Resp BP Pulse Ox O2 Del Method 01/17/23 11:30 98.6 F 86 20 134/69 96 Room Air 01/17/23 09:48 76 01/17/23 08:00 98.6 F 74 18 98/73 L Room Air 01/17/23 08:46 85 118/62 01/17/23 03:44 98.4 F 69 18 105/55 L 97 Nasal Cannula O2 Flow Rate 01/17/23 11:30 01/17/23 09:48 01/17/23 08:00 01/17/23 08:46 01/17/23 03:44 3.5 PG Care Time/CCT Total # of Minutes Spent Total Time Spent with Patient: Total time spent is greater than 50% in coordination of care (as documented) at patient's floor/unit and/or counseling patient: Coding Level of Care Code 63904 SUB INP/OBS CARE 2/35MIN Diagnoses Acute respiratory failure with hypoxia J96.01 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 fraction I50.33 Aortic stenosis I35.0 Atrial fibrillation I48.91 Diabetes mellitus E11.9 Hypercholesteremia E78.00 SADIQ (obstructive sleep apnea) G47.33 Time Spent (min) 35
[2023-01-18 07:17] LABS: Basophils # (auto) 0.05 K/uL (0-0.2); Basophils % (auto) 0.6 %; Eosinophils # (auto) 0.26 K/uL (0-0.50); Eosinophils % (auto) 3.3 %; Hematocrit (blood only) 40.3 % (37.0-47.0); Hemoglobin 13.4 g/dl (12.0-16.0); Immature Granulocytes # (auto) 0.02 K/uL (0.01-0.20); Immature Granulocytes % (auto) 0.3 %; Lymphocytes # (auto) 2.04 K/uL (1.2-3.4); Lymphocytes % (auto) 26.1 %; Mean Corpuscular Hemoglobin 32.6 pg (25.0-34.0); Mean Corpuscular Hgb Conc 33.3 g/dL (32.0-36.0); Mean Corpuscular Volume 98.1 fL (80.0-100.0); Mean Platelet Volume 10.7 fL (9.4-12.4); Monocytes # (auto) 0.92 K/uL (0.11-0.59); Monocytes % (auto) 11.7 %; Neutrophils # (auto) 4.54 K/uL (1.40-6.50); Platelet Count 125 K/uL (130-400); RDW Standard Deviation 46.8 fL (36.4-46.3); Red Blood Count 4.11 M/uL (4.20-5.40); White Blood Count 7.83 K/ul (4.8-10.8)
[2023-01-18 07:50] LABS: BUN Creatinine Ratio 27.5 (10-20); Calcium 8.9 mg/dl (8.6-10.3); Creatinine Clr Calc Pharmacy 49.4 ml/min; Est GFR (African American) 76.8 ml/min; Est GFR (Non-African American) 66.3 ml/min; Potassium 4.1 mmol/L (3.5-5.1)
[2023-01-18] MEDS: INSULIN ASPART PER UNIT CHARGE SC SCH ×4 (08:12→22:02)
[2023-01-18] MEDS: POTASSIUM CHLORIDE CRTAB 20 MEQ TABCR PO SCH ×2 (08:12→22:00)
[2023-01-18] MEDS: LOSARTAN POTASSIUM 50 MG TAB PO SCH (08:13)
[2023-01-18] MEDS: METOPROLOL SUCC 50MG EXT REL TAB PO SCH (08:13)
[2023-01-18] MEDS: APIXABAN 5 MG TABLET PO SCH ×2 (08:13→22:02)
[2023-01-18] MEDS: FUROSEMIDE 40 MG/4 ML VIAL IV SCH ×2 (08:13→17:02)
--- NOTE | 2023-01-18 14:29 | Hospitalist Progress Note ---
Date of Service January 18, 2023 Assessment & Plan (1) 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 fraction: Plan: echo 08/07/2022: Technically challenging study, EF 60-65% without regional wall motion abnormalities noted Mod-severe Continues to diurese well with improved symptoms and stable renal function Cont IV lasix 40mg BID Cause of decompensation? son thinks dietary indiscretion untreated SADIQ could be contributing can't rule out a.fib but rates here have been controlled Continue losartan 50 mg daily, metoprolol extended release 50 mg daily Daily weights Daily BMP Check mag in am as well (2) Aortic stenosis: Plan: Moderate to severe aortic stenosis Possible that this is contributing to decompensation as valve area is well <1cm^2 Avoid excessive diuresis or afterload reduction (3) Atrial fibrillation: Plan: rates controlled with metoprolol succinate 50mg daily later in the day I was told she had minor pauses to about 3 sec indeed this did happen she did maryanne to the upper 30s as well will lower metoprolol succinate to 25mg daily cont tele cont Eliquis BID (4) Diabetes mellitus: Plan: Adequate control with SSI Novolog only cont DM diet, BSGs, etc (5) Hypercholesteremia: Plan: Continue statin (6) SADIQ (obstructive sleep apnea): Plan: consider overnight oximetry study the night before discharge to see if NC O2 candidate cannot tolerate CPAP Plan son extensively updated by phone this evening PT/OT cleared her for home -- lives with son progressing nicely Admission and Anticipated Discharge Date Admission Date: January 15, 2023 Subjective tele overnight - rate controlled a.fib patient lying flat in bed comfortably denies dyspnea at rest mild PATIÑO however no chest pain eating well feels better in comparison to admission does endorse h/o SADIQ but is not on any therapy for such I spoke w/ son by phone - she stopped using CPAP years ago Review of Systems Review of Systems: gen - feels good, no fevers cv - no PND pulm - no cough GI - no nausea/emesis Physical Exam Physical Exam: gen - NAD, lying flat in bed comfortably neck - mild JVD present heart - irregularly irregular, s1 s2 is heard, 2/6 holosystolic murmur RUSB lungs - b/l basilar rales, decreased BS bases; no increased work of breathing abd - soft NT ND BS+ ext - trace edema, pulses 2+ b/l Results & Data Results & Data Vital Signs (Past 12 Hours) Vital Signs Temp Pulse Pulse Resp BP BP Pulse Ox 01/18/23 11:37 36.5 C 95 H 20 107/66 95 01/18/23 09:01 01/18/23 08:02 36.4 C L 72 20 123/57 L 91 01/18/23 07:00 60 01/18/23 04:10 37.2 C 61 22 115/76 91 O2 Del Method O2 Flow Rate 01/18/23 11:37 Nasal Cannula 3 01/18/23 09:01 Nasal Cannula 2 01/18/23 08:02 Nasal Cannula 3 01/18/23 07:00 01/18/23 04:10 Nasal Cannula 3 Laboratory Results Laboratory Results - last 24 hr 01/18/23 01/18/23 01/18/23 06:35 06:35 07:29 WBC 7.83 RBC 4.11 L Hgb 13.4 Hct 40.3 MCV 98.1 MCH 32.6 MCHC 33.3 RDW Std Deviation 46.8 H RDW Coeff of Umair 13.0 Plt Count 125 L MPV 10.7 Immature Gran % (Auto) 0.3 Neut % (Auto) 58.0 Lymph % (Auto) 26.1 Cavalier % (Auto) 11.7 Eos % (Auto) 3.3 Baso % (Auto) 0.6 Neut # (Auto) 4.54 Lymph # (Auto) 2.04 Cavalier # (Auto) 0.92 H Eos # (Auto) 0.26 Baso # (Auto) 0.05 Immature Gran # (Auto) 0.02 Sodium 138 Potassium 4.1 Chloride 99 Carbon Dioxide 36 H Anion Gap 3 BUN 22 Creatinine 0.80 Est Cr Clr Drug Dosing 49.4 Est GFR ( Amer) 76.8 Est GFR (Non-Af Amer) 66.3 BUN/Creatinine Ratio 27.5 H Glucose 147 H POC Glucose 130 H Calcium 8.9 Magnesium 01/18/23 01/18/23 11:01 16:13 WBC RBC Hgb Hct MCV MCH MCHC RDW Std Deviation RDW Coeff of Umair Plt Count MPV Immature Gran % (Auto) Neut % (Auto) Lymph % (Auto) Cavalier % (Auto) Eos % (Auto) Baso % (Auto) Neut # (Auto) Lymph # (Auto) Cavalier # (Auto) Eos # (Auto) Baso # (Auto) Immature Gran # (Auto) Sodium Potassium Chloride Carbon Dioxide Anion Gap BUN Creatinine Est Cr Clr Drug Dosing Est GFR ( Amer) Est GFR (Non-Af Amer) BUN/Creatinine Ratio Glucose POC Glucose 230 H 112 H Calcium Magnesium PG Care Time/CCT Total # of Minutes Spent Total Time Spent with Patient: Total time spent is greater than 50% in coordination of care (as documented) at patient's floor/unit and/or counseling patient: Coding Level of Care Code 18232 SUB INP/OBS CARE 2/35MIN Diagnoses 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 fraction I50.33 Aortic stenosis I35.0 Atrial fibrillation I48.91 Diabetes mellitus E11.9 Hypercholesteremia E78.00 SADIQ (obstructive sleep apnea) G47.33
--- NOTE | 2023-01-19 07:06 | Electrocardiogram Report ---
Test Reason : Blood Pressure : / mmHG Vent. Rate : 055 BPM Atrial Rate : 055 BPM P-R Int : 000 ms QRS Dur : 078 ms QT Int : 446 ms P-R-T Axes : 000 070 067 degrees QTc Int : 426 ms Atrial fibrillation with slow ventricular response with premature ventricular or aberrantly conducted complexes Nonspecific ST abnormality Abnormal ECG When compared with ECG of 15-JAN-2023 08:48, No significant change was found Confirmed by Tirso Cantrell ([id number] on 01/19/2023 7:06:17 AM Referred By: REFERRED SELF Confirmed By:Nehemias Cantrell
[2023-01-19 07:17] LABS: BUN Creatinine Ratio 32.8 (10-20); Calcium 9.3 mg/dl (8.6-10.3); Creatinine Clr Calc Pharmacy 61.3 ml/min; Est GFR (Non-African American) 80.2 ml/min; Magnesium 1.7 mg/dl (1.7-2.4); Potassium 4.4 mmol/L (3.5-5.1)
[2023-01-19] MEDS: POTASSIUM CHLORIDE CRTAB 20 MEQ TABCR PO SCH ×2 (07:59→19:39)
[2023-01-19] MEDS: FUROSEMIDE 40 MG/4 ML VIAL IV SCH ×2 (08:00→17:04)
[2023-01-19] MEDS: APIXABAN 5 MG TABLET PO SCH ×2 (08:00→19:39)
[2023-01-19] MEDS: LOSARTAN POTASSIUM 50 MG TAB PO SCH (08:00)
[2023-01-19] MEDS: INSULIN ASPART PER UNIT CHARGE SC SCH ×4 (08:08→21:27)
[2023-01-19] MEDS: METOPROLOL SUCC 25MG EXT REL TAB PO SCH (08:58)
--- NOTE | 2023-01-19 20:16 | Hospitalist Progress Note ---
Date of Service January 19, 2023 Assessment & Plan (1) 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 fraction: Plan: improving nicely echo 08/07/2022: Technically challenging study, EF 60-65% without regional wall motion abnormalities noted Mod-severe Continues to diurese well with improved symptoms and stable renal function Cont IV lasix 40mg BID but suspect we are approaching euvolemia next 1-2 days Cause of decompensation? son thinks dietary indiscretion untreated SADIQ could be contributing can't rule out a.fib but rates here have been controlled Continue losartan 50 mg daily, metoprolol extended release 25 mg daily Daily weights Daily BMP (2) Aortic stenosis: Plan: Moderate to severe aortic stenosis Possible that this is contributing to decompensation as valve area is well <1cm^2 Avoid excessive diuresis or afterload reduction (3) Atrial fibrillation: Plan: rates controlled with metoprolol succinate 25mg daily did have minor pauses to about 3 sec earlier last week she did maryanne to the upper 30s as well lowered metoprolol succinate to 25mg daily at that time and rates remain acceptable cont tele cont Eliquis BID (4) Diabetes mellitus: Plan: Adequate control with SSI Novolog only cont DM diet, BSGs, etc (5) Hypercholesteremia: Plan: Continue statin (6) SADIQ (obstructive sleep apnea): Plan: consider overnight oximetry study the night before discharge to see if NC O2 candidate cannot tolerate CPAP Plan son extensively updated by phone last evening son updated at bedside today PT/OT cleared her for home -- lives with son progressing nicely wean O2 Admission and Anticipated Discharge Date Admission Date: January 15, 2023 Subjective patient continues to feel better less dyspnea less PATIÑO eating well no chest pain overall she is pleased w/ progress tele overnight - rate controlled a.fib, rates <100 Review of Systems Review of Systems: gen - feels well, no fever cv - no orthopnea pulm - no dyspnea at rest or cough GI - no abd pain or N/V Physical Exam Physical Exam: gen - NAD, sitting in chair by window neck - JVD appears resolved heart - irregularly irregular, s1 s2 is heard, 2/6 holosystolic murmur RUSB lungs - b/l basilar rales much improved (mild at this point), decreased BS bases; no increased work of breathing abd - soft NT ND BS+ ext - no edema, pulses 2+ b/l psych - a/o x 3 Results & Data Results & Data Vital Signs (Past 12 Hours) Vital Signs Temp Pulse Pulse Resp BP Pulse Ox O2 Del Method 01/19/23 16:00 72 01/19/23 15:54 36.4 C L 78 19 141/80 H 98 Nasal Cannula 01/19/23 11:55 36.8 C 88 16 126/78 94 Nasal Cannula O2 Flow Rate 01/19/23 16:00 01/19/23 15:54 3 01/19/23 11:55 3 Laboratory Results Laboratory Results - last 24 hr 01/18/23 01/19/23 01/19/23 21:05 06:21 07:40 Sodium 140 Potassium 4.4 Chloride 99 Carbon Dioxide 36 H Anion Gap 5 BUN 21 Creatinine 0.64 Est Cr Clr Drug Dosing 61.3 Est GFR ( Amer) 93.0 Est GFR (Non-Af Amer) 80.2 BUN/Creatinine Ratio 32.8 H Glucose 153 H POC Glucose 120 H 159 H Calcium 9.3 Magnesium 1.7 01/19/23 01/19/23 11:41 16:19 Sodium Potassium Chloride Carbon Dioxide Anion Gap BUN Creatinine Est Cr Clr Drug Dosing Est GFR ( Amer) Est GFR (Non-Af Amer) BUN/Creatinine Ratio Glucose POC Glucose 185 H 120 H Calcium Magnesium PG Care Time/CCT Total # of Minutes Spent Total Time Spent with Patient: Total time spent is greater than 50% in coordination of care (as documented) at patient's floor/unit and/or counseling patient: Coding Level of Care Code 66760 SUB INP/OBS CARE 2/35MIN Diagnoses 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 fraction I50.33 Aortic stenosis I35.0 Atrial fibrillation I48.91 Diabetes mellitus E11.9 Hypercholesteremia E78.00 SADIQ (obstructive sleep apnea) G47.33
[2023-01-20 08:36] LABS: BUN Creatinine Ratio 27.6 (10-20); Calcium 9.4 mg/dl (8.6-10.3); Creatinine Clr Calc Pharmacy 51.6 ml/min; Est GFR (African American) 81.7 ml/min; Est GFR (Non-African American) 70.5 ml/min; Potassium 4.4 mmol/L (3.5-5.1)
[2023-01-20] MEDS ORDERED: FUROSEMIDE 40 MG/4 ML VIAL IV ONE (09:00)
[2023-01-20] MEDS ORDERED: acetaZOLAMIDE 250 MG TAB PO SCH (09:00)
[2023-01-20] MEDS: INSULIN ASPART PER UNIT CHARGE SC SCH ×4 (09:19→23:52)
[2023-01-20] MEDS: APIXABAN 5 MG TABLET PO SCH ×2 (09:39→20:50)
[2023-01-20] MEDS: LOSARTAN POTASSIUM 50 MG TAB PO SCH (09:39)
[2023-01-20] MEDS: METOPROLOL SUCC 25MG EXT REL TAB PO SCH (09:40)
[2023-01-20] MEDS: POTASSIUM CHLORIDE CRTAB 20 MEQ TABCR PO SCH ×2 (09:40→20:50)
--- NOTE | 2023-01-20 20:34 | Hospitalist Progress Note ---
Date of Service January 20, 2023 Assessment & Plan (1) 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 fraction: Plan: decompensation appears clinically resolved; also w/ contraction alkalosis on labs - also suggestive of resolution of decompensation stop lasix IV give 1 dose of diamox for contraction alkalosis echo 08/07/2022: Technically challenging study, EF 60-65% without regional wall motion abnormalities noted Mod-severe Cause of decompensation? son thinks dietary indiscretion untreated SADIQ could be contributing as well can't rule out a.fib but rates here have been controlled Continue losartan 50 mg daily, metoprolol extended release 25 mg daily Daily weights Daily BMP At discharge consider lasix 40mg once daily? (was on 20mg daily previously) (2) Aortic stenosis: Plan: Moderate to severe aortic stenosis Possible that this is contributing to decompensation as valve area is well <1cm^2 Avoid excessive diuresis or afterload reduction (3) Atrial fibrillation: Plan: rates controlled with metoprolol succinate 25mg daily did have minor pauses to about 3 sec earlier last week she did maryanne to the upper 30s as well lowered metoprolol succinate to 25mg daily at that time and rates remain acceptable with the lower dose cont tele cont Eliquis BID (4) Diabetes mellitus: Plan: Adequate control with SSI Novolog only cont DM diet, BSGs, etc (5) Hypercholesteremia: Plan: Continue statin (6) SADIQ (obstructive sleep apnea): Plan: obtain overnight oximetry study tonight to see if we can qualify her for night- time O2 tried CPAP in the past - could not tolerate such treating SADIQ may help diastolic CHF Plan son extensively updated by phone over weekend son updated at bedside yesterday PT/OT cleared her for home -- lives with son home 01/21/23? Admission and Anticipated Discharge Date Admission Date: January 15, 2023 Subjective tele overnight - a.fib, rates <100 staff took patient for a walk in hallway - rates remained <100 patient lying flat in bed today denies dyspnea during her walk at mild PATIÑO no chest pain still requiring 2 L of NC O2 no new issues overnight Review of Systems Review of Systems: gen - tired, but otherwise feels well cv - no chest pain pulm - no cough GI - no abd pain/nausea/emesis Physical Exam Physical Exam: gen - NAD, lying flat in bed comfortably w/o dyspnea neck - no JVD heart - irregularly irregular, s1 s2 is heard, 2/6 holosystolic murmur RUSB lungs - CTA b/l; no rales; mildly decreased BS bases only abd - soft NT ND BS+ ext - no edema, pulses 2+ b/l psych - a/o x 3, tired today Results & Data Results & Data Vital Signs (Past 12 Hours) Vital Signs Temp Pulse Resp BP Pulse Ox O2 Del Method O2 Flow Rate 01/20/23 19:28 36.5 C 88 18 97/61 L 94 Nasal Cannula 2 01/20/23 15:30 36.7 C 86 20 137/64 93 Nasal Cannula 2 01/20/23 11:27 36.6 C 66 18 110/70 98 Nasal Cannula 3 01/20/23 11:05 Nasal Cannula 2 Laboratory Results Laboratory Results - last 24 hr 01/19/23 01/20/23 01/20/23 20:56 07:12 07:37 Sodium 141 Potassium 4.4 Chloride 98 Carbon Dioxide 41 H* Anion Gap 2 L BUN 21 Creatinine 0.76 Est Cr Clr Drug Dosing 51.6 Est GFR ( Amer) 81.7 Est GFR (Non-Af Amer) 70.5 BUN/Creatinine Ratio 27.6 H Glucose 142 H POC Glucose 129 H 152 H Calcium 9.4 01/20/23 01/20/23 01/20/23 11:01 16:10 20:17 Sodium Potassium Chloride Carbon Dioxide Anion Gap BUN Creatinine Est Cr Clr Drug Dosing Est GFR ( Amer) Est GFR (Non-Af Amer) BUN/Creatinine Ratio Glucose POC Glucose 169 H 118 H 117 H Calcium PG Care Time/CCT Total # of Minutes Spent Total Time Spent with Patient: Total time spent is greater than 50% in coordination of care (as documented) at patient's floor/unit and/or counseling patient: Coding Level of Care Code 19225 SUB INP/OBS CARE 2/35MIN Diagnoses 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 fraction I50.33 Aortic stenosis I35.0 Atrial fibrillation I48.91 Diabetes mellitus E11.9 Hypercholesteremia E78.00 SADIQ (obstructive sleep apnea) G47.33
[2023-01-21 07:46] LABS: BUN Creatinine Ratio 29.3 (10-20); Calcium 9.8 mg/dl (8.6-10.3); Creatinine Clr Calc Pharmacy 47.3 ml/min; Est GFR (African American) 74.6 ml/min; Est GFR (Non-African American) 64.3 ml/min; Potassium 4.1 mmol/L (3.5-5.1)
[2023-01-21] MEDS: INSULIN ASPART PER UNIT CHARGE SC SCH ×4 (09:14→20:09)
[2023-01-21] MEDS: APIXABAN 5 MG TABLET PO SCH ×2 (09:15→20:10)
[2023-01-21] MEDS: METOPROLOL SUCC 25MG EXT REL TAB PO SCH (09:15)
[2023-01-21] MEDS: POTASSIUM CHLORIDE CRTAB 20 MEQ TABCR PO SCH ×2 (09:16→20:10)
--- NOTE | 2023-01-21 09:41 | Hospitalist Progress Note ---
Date of Service January 21, 2023 Assessment & Plan (1) 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 fraction: Plan: Decompensation appears clinically nearly resolved; also w/ contraction alkalosis on labs - also suggestive of resolution of decompensation Given 1 dose of diamox for contraction alkalosis Typically on 20mg Lasix daily, for now continue 40mg daily with BMP monitoring, plan to continue on discharge if renal function appropriate tomorrow AM CHF program referral placed Echo 08/07/2022: Technically challenging study, EF 60-65% without regional wall motion abnormalities noted, Mod-severe untreated SADIQ could be contributing to symptoms as well Can't rule out a.fib, but rates here have been controlled Continue losartan 50 mg daily, metoprolol extended release 25 mg daily (metoprolol dose decreased this admission) Daily weights Daily BMP (2) Aortic stenosis: Plan: Moderate to severe aortic stenosis Possible that this is contributing to decompensation as valve area is well <1cm^2 Avoid excessive diuresis or afterload reduction (3) Atrial fibrillation: Plan: Rates controlled with metoprolol succinate 25mg daily, had some bradycardia in 30s and a 3 second pause on higher doses Cont tele Cont Eliquis BID (4) Diabetes mellitus: Plan: Adequate control with SSI Novolog only Cont DM diet, BSGs, etc (5) Hypercholesteremia: Plan: Continue statin (6) SADIQ (obstructive sleep apnea): Plan: Overnight oximetry with evidence of sleep apnea, recommend formal evaluation outpatient, but patient does qualify for nighttime O2 2LNC per two step today Treating SADIQ may help diastolic CHF Plan PT/OT cleared her for home -- lives with son Home tomorrow if able to get oxygen and patient continuing to improve clinically Admission and Anticipated Discharge Date Admission Date: January 15, 2023 Subjective No complaints today, breathing somewhat better but has been on oxygen 2LNC. Enjoyed walk with PT. Physical Exam Constitutional: WD/WN, vitals as above Respiratory: normal respiratory effort, lungs clear to auscultation Cardiovascular: RRR, no murmur, no edema Gastrointestinal (Abdomen): normal bowel sounds, soft, nontender, no hepatosplenomegaly Skin: no rashes, warm and dry Psychiatric: A+Ox3, euthymic affect Results & Data Results & Data Vital Signs (Past 12 Hours) Vital Signs Temp Pulse Pulse Pulse Resp BP Pulse Ox 01/21/23 08:16 91 01/21/23 07:43 36.5 C 87 16 107/71 88 L 01/21/23 03:39 36.5 C 90 20 108/68 90 01/21/23 03:10 87 01/20/23 23:08 36.4 C L 58 L 20 127/82 93 Pulse Ox O2 Del Method O2 Del Method O2 Flow Rate 01/21/23 08:16 Nasal Cannula 2 01/21/23 07:43 Nasal Cannula 2 01/21/23 03:39 Room Air 01/21/23 03:10 92 Room Air 01/20/23 23:08 Nasal Cannula 2.0 PG Care Time/CCT Total # of Minutes Spent Total Time Spent with Patient: Total time spent is greater than 50% in coordination of care (as documented) at patient's floor/unit and/or counseling patient: Coding Level of Care Code 24436 SUB INP/OBS CARE 235MIN Diagnoses 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 fraction I50.33 Aortic stenosis I35.0 Atrial fibrillation I48.91 Diabetes mellitus E11.9 Hypercholesteremia E78.00 SADIQ (obstructive sleep apnea) G47.33
[2023-01-21] MEDS: FUROSEMIDE 40 MG TAB PO SCH (10:29)
--- NOTE | 2023-01-21 14:46 | XRay Report ---
XR chest 1V portable CLINICAL HISTORY: eval for pulm edema TECHNIQUE: Single frontal radiograph of the chest was obtained. Comparison: Comparison is made to chest radiograph 01/15/2023 FINDINGS: No lines and tubes are seen. Cardiomegaly is noted. The aortic arch is calcified. Previously noted pu lmonary edema has improved. Mild atelectasis is seen. No evidence of pleural effusion or pneumothorax . IMPRESSION: Mild atelectasis with interval improvement of pulmonary edema. ACT 112: Negative or not required by law. Electronically signed by: Genaro Hinson M.D. 01/21/2023 2:44 PM
[2023-01-22] MEDS: APIXABAN 5 MG TABLET PO SCH (08:05)
[2023-01-22] MEDS: POTASSIUM CHLORIDE CRTAB 20 MEQ TABCR PO SCH (08:05)
[2023-01-22] MEDS: FUROSEMIDE 40 MG TAB PO SCH (08:06)
[2023-01-22] MEDS: METOPROLOL SUCC 25MG EXT REL TAB PO SCH (08:06)
[2023-01-22] MEDS: INSULIN ASPART PER UNIT CHARGE SC SCH ×2 (08:06→12:35)
--- NOTE | 2023-01-22 08:33 | Discharge Summary ---
Discharge Summary Date of Service January 22, 2023 Admission HPI Per Admitting Provider Araceli is an 87-year-old female with a past medical history of type II DM, heart failure with preserved ejection fraction, hypertension, and scoliosis who presents with shortness of breath suspect due to acute on chronic congestive heart failure Came in 'because I couldn't breath'.Breathing worsening over the last 3-4 days. No fevers. "Clump in my throat a little". No productive cough. Has not noticed orthopnea. NO chest pain or chest pressure. No leg swelling. Endorses dietary increased salt this past week. "I love fritos, I've been eating mroe than I should." Also had a fish stew and ribs a few nights ago. Missed her dose of lasix today, taken daily in the last 2 weeks and rarely misses medications. ENdorses intermittent urinary incontience at baseline, but no change urination. No dysuria. No saddle anesthesia, strength change, or retention. NO abdominal pain. Sees Dr. Gray for her . Currently just monitoring, if were to progress would consider TAVR at that point but has not yet been bad enough for referral Endorses past hx of intermittent bronchitis which feels different that current sx. Medical History: Reviewed Medications: Reviewed Surgical History: Reviewed Family history: Reviewed Allergies: Reviewed Social History: No tobacco or etoh use. Denies recreational drug use Code Status: DNR/DNI. Admission Exam Per Admitting Provider General: A&Ox3. NAD. Cooperative. HEENT: Atraumatic, normocephalic. PERLAA. EoM intact Pulm: +bibasilar crackles, no wheezes. Symmetrical chest rise. No increased work of breathing. Appears mildly SoB on Cardiac: irir,+mr. Radial pulses intact and symmetrical. Abdominal: Nontender, nondistended, soft. BS present. Ext: warm, dry. trace pitting ankle edema. Principal Dx & Hospital Course #1 = Principal Diagnosis (1) 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 fraction: Decompensation appears clinically resolved; also w/ contraction alkalosis on labs - also suggestive of resolution of decompensation Given 1 dose of diamox for contraction alkalosis earlier this admission Typically on 20mg Lasix daily, continue on discharge with close [facility] follow up Echo 08/07/2022: Technically challenging study, EF 60-65% without regional wall motion abnormalities noted, Mod-severe Not in AFib RVR, less suspicious of this as cause of CHF exacerbation compared to dietary indiscretion Continue losartan 50 mg daily, metoprolol extended release 25 mg daily (metoprolol dose decreased this admission) Daily weights at home (2) Aortic stenosis: Moderate to severe aortic stenosis Possible that this is contributing to decompensation as valve area is well <1cm^2 Avoid excessive diuresis or afterload reduction (3) Atrial fibrillation: Rates controlled with metoprolol succinate 25mg daily, had some bradycardia in 30s and a 3 second pause on higher doses Cont Eliquis BID (4) Diabetes mellitus: Resume home regimen, DM2 diet (5) Hypercholesteremia: Continue statin (6) SADIQ (obstructive sleep apnea): Overnight oximetry this admission with evidence of nocturnal hypoxia, obesity hypoventilation syndrome, recommend formal evaluation outpatient, but patient does qualify for nighttime O2 2LNC Two step done this admission, did not require supplemental O2 when awake at rest or with activity Plan PT/OT cleared her for home -- lives with son Home today with oxygen tank for 2LNC at nighttime, formal sleep study outpatient Discharge Exam Constitutional WD/WN, vitals as above Respiratory normal respiratory effort, lungs clear to auscultation Psychiatric A+Ox3, euthymic affect Updated Medication List Medication Instructions Recorded Confirmed Type cholecalciferol (vitamin D3) 25 1,000 units PO DAILY 02/05/19 01/15/23 History mcg (1,000 unit) tablet blood sugar diagnostic (Blood #25 ea 01/02/22 12/11/22 Rx Glucose Test strips) blood-glucose meter (Blood Glucose #1 ea 01/02/22 12/11/22 Rx Monitoring kit) lancets (Lancets, Super Thin) #100 ea 01/02/22 12/11/22 Rx potassium chloride 20 mEq 20 meq PO DAILY #90 tabs 01/29/22 01/15/23 Rx tablet,extended release atorvastatin 10 mg tablet 5 mg PO DAILY #90 tabs 01/31/22 01/15/23 Rx losartan 100 mg tablet 50 mg PO DAILY #90 tabs 01/31/22 01/15/23 Rx dulaglutide 0.75 mg/0.5 mL 0.75 mg (0.5 mL) subcut WK #16 04/12/22 01/15/23 Rx subcutaneous pen injector SYRINGES apixaban 5 mg tablet (Eliquis) 5 mg PO BID #180 tabs 06/03/22 01/15/23 Rx furosemide 20 mg tablet (Lasix) 20 mg PO DAILY #90 tabs 01/10/23 01/15/23 Rx tramadol 50 mg tablet 50 mg PO Q6H PRN pain #30 tabs 01/10/23 01/15/23 Rx lidocaine 5 % topical patch 1 patch topical DAILY PRN Pain 01/15/23 01/15/23 History metoprolol succinate 25 mg 25 mg PO DAILY 30 days #30 tabs 01/22/23 Rx tablet,extended release 24 hr Hospital Stay Data Consultations 01/15/23 10:25 ED Decision to Admit Stat 01/21/23 08:15 [facility] [place]ine Discharge Instructions Given to Patient (Per Discharging Provider) Metoprolol dose changed: down from 50 milligrams daily to 25 milligrams daily. Sent to [facility]. Otherwise, continue home medications. See appointment above with Heart Failure provider Steffanie Barrientos on 01/28 at 2pm. Please also follow up with your family doctor. Total Time Total Time Spent Total Time Spent (In Minutes): 35 min Coding Level of Care Code 17315 INP/OBS DISCH >30 MIN Diagnoses 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 fraction I50.33 Aortic stenosis I35.0 Atrial fibrillation I48.91 Diabetes mellitus E11.9 Hypercholesteremia E78.00 SADIQ (obstructive sleep apnea) G47.33
[2023-01-22 08:54] LABS: Basophils # (auto) 0.07 K/uL (0-0.2); Basophils % (auto) 1.2 %; Eosinophils # (auto) 0.29 K/uL (0-0.50); Eosinophils % (auto) 5.1 %; Hematocrit (blood only) 48.7 % (37.0-47.0); Hemoglobin 16.5 g/dl (12.0-16.0); Immature Granulocytes # (auto) 0.02 K/uL (0.01-0.20); Immature Granulocytes % (auto) 0.3 %; Lymphocytes # (auto) 1.62 K/uL (1.2-3.4); Lymphocytes % (auto) 28.3 %; Mean Corpuscular Hemoglobin 32.3 pg (25.0-34.0); Mean Corpuscular Hgb Conc 33.9 g/dL (32.0-36.0); Mean Corpuscular Volume 95.3 fL (80.0-100.0); Mean Platelet Volume 11.1 fL (9.4-12.4); Monocytes % (auto) 10.5 %; Neutrophils # (auto) 3.12 K/uL (1.40-6.50); Neutrophils % (auto) 54.6 %; Platelet Count 150 K/uL (130-400); RDW Standard Deviation 45.7 fL (36.4-46.3); Red Blood Count 5.11 M/uL (4.20-5.40); White Blood Count 5.72 K/ul (4.8-10.8)
[2023-01-22 09:01] LABS: Potassium 4.5 mmol/L (3.5-5.1)
[2023-01-22 09:06] LABS: BUN Creatinine Ratio 28.9 (10-20); Creatinine Clr Calc Pharmacy 43.1 ml/min; Est GFR (African American) 66.6 ml/min; Est GFR (Non-African American) 57.5 ml/min
== END 2023-01-22 15:30 | disposition home health service (06) | DRG 291 ==
LOC: ED 07:35 → 2S 10:49 → SUATTDRO 10:49 → 2S 16:13